=== PATIENT | male | born 1975 | race Caucasian/White ===

== ENCOUNTER → 2018-12-30 08:53 | Outpatient (CLI) | payer OTHER, MEDICAID, SELFPAY ==
--- NOTE | 2018-12-30 08:56 | DI.NM.S_ITS ---
PROCEDURE: NM GASTRIC EMPTYING STUDY RADIOPHARMACEUTICAL: 1.0 mCi Tc-99m sulfur colloid in an egg sandwich. INDICATIONS: N/v in diabetic TECHNIQUE: A Tc-99m labeled sulfur colloid labeled egg sandwich or oatmeal was served to the patient. Anterior and posterior planar images of the abdomen were obtained at 0 minutes and 30 minutes, then at hourly intervals up to 4 hours. The patient was upright and ambulating during the interval. COMPARISON: None. FINDINGS: The stomach has normal size, morphology, and position. There is normal emptying of solid gastric contents from the stomach by visual inspection. No gastroesophageal reflux is visualized. The percentage of tracer retained at specific time points are as follows: Time point Percent gastric retention Normal range 30 minutes 85% 70% or more 1 hour 56% 30% to 90% 2 hours 29% 60% or less 3 hours 4% 30% or less IMPRESSION: Normal gastric emptying time, source of current symptomatology is not found. Dictated by: Melvin Koenig M.D. on 12/30/2018 at 14:11 Approved by: Melvin Koenig M.D. on 12/30/2018 at 14:14
== END ==
PROVIDERS: PCP Student in an Organized Health Care Education/Training Program; Visit Provider Student in an Organized Health Care Education/Training Program
DX: E11.9 Type 2 diabetes mellitus without complications (principal); R11.2 Nausea with vomiting, unspecified
CPT/HCPCS: 78264; A9541

== ENCOUNTER → 2019-05-17 11:11 | Outpatient (CLI) | payer OTHER, MEDICAID, SELFPAY ==
[2019-05-17 11:52] LABS: Hematocrit 37.8 % (41-53); Hemoglobin 13.1 g/dL (13.5-17.5); Mean Corpuscular HGB Conc 34.6 % (30-36); Mean Corpuscular Volume 80.9 fL (80-100); Platelet Count 338 X10^3/uL (150-400); Red Blood Cell Count 4.67 X10^6/uL (4.5-5.9); Red Cell Distribution Width 14.3 % (11.6-14.8); White Blood Cell Count 12.4 X10^3/uL (4.5-11.0)
[2019-05-17 12:01] LABS: Hemoglobin A1C% w Est Avg Glu 7.8 % (4.0-6.0)
[2019-05-17 12:05] LABS: Cholesterol 176 mg/dL (140-199); HDL Cholesterol 28 mg/dL (40-60); LDL Cholesterol Calculated 85 mg/dL (<100); Triglycerides 317 mg/dL (35-150)
[2019-05-17 12:29] LABS: Vitamin D 25 Hydroxy (D3) 15.2 ng/mL (30.0-100.0)
== END ==
PROVIDERS: PCP Student in an Organized Health Care Education/Training Program; Visit Provider Student in an Organized Health Care Education/Training Program
DX: E11.22 Type 2 diabetes mellitus with diabetic chronic kidney disease (principal); E11.69 Type 2 diabetes mellitus with other specified complication; E13.43 Other specified diabetes mellitus with diabetic autonomic (poly)neuropathy; E78.5 Hyperlipidemia, unspecified; I12.9 Hypertensive chronic kidney disease with stage 1 through stage 4 chronic kidney disease, or unspecified chronic kidney disease; N05.9 Unspecified nephritic syndrome with unspecified morphologic changes; N18.3 Chronic kidney disease, stage 3 (moderate); Z79.4 Long term (current) use of insulin; E55.9 Vitamin D deficiency, unspecified
CPT/HCPCS: 36415; 80061; 82306; 83036; 85027

== ENCOUNTER → 2019-07-13 15:43 | Outpatient (CLI) | payer OTHER, MEDICAID, SELFPAY ==
[2019-07-13 16:46] LABS: Hematocrit 36.7 % (41-53); Hemoglobin 12.5 g/dL (13.5-17.5)
[2019-07-13 17:02] LABS: BUN Creatinine Ratio 19.5 (6-22); Blood Urea Nitrogen 39 mg/dL (9-20); Calcium 9.4 mg/dL (8.4-10.2); Carbon Dioxide 26 mmol/L (22-32); Chloride 108 mmol/L (98-107); Estimated Glomerular Filt Rate 36.6 mL/min (>60); Glucose 197 mg/dL (70-100); HEMOLYSIS < 15 (0-50); Potassium 5.2 mmol/L (3.4-5.1); Sodium 141 mmol/L (137-145)
[2019-07-13 17:32] LABS: Creatinine Urine Random 73.3 mg/dL; Protein (Total) Urine Random 110 mg/dL (0-12)
[2019-07-15 12:16] LABS: Parathyroid Hormone Int 48 pg/mL (14-64)
== END ==
PROVIDERS: PCP Student in an Organized Health Care Education/Training Program; Referring Provider Student in an Organized Health Care Education/Training Program; Visit Provider Student in an Organized Health Care Education/Training Program
DX: N05.9 Unspecified nephritic syndrome with unspecified morphologic changes (principal); D64.9 Anemia, unspecified; N25.81 Secondary hyperparathyroidism of renal origin; R80.9 Proteinuria, unspecified
CPT/HCPCS: 36415; 80048; 82570; 83970; 84156; 85014; 85018

== ENCOUNTER → 2019-08-29 14:21 | Outpatient (CLI) | payer MEDICARE, MEDICAID, SELFPAY ==
[2019-08-29 15:06] LABS: Hematocrit 32.2 % (41-53); Hemoglobin 11.3 g/dL (13.5-17.5)
[2019-08-29 15:42] LABS: BUN Creatinine Ratio 20.4 (6-22); Blood Urea Nitrogen 34 mg/dL (9-20); Calcium 9.1 mg/dL (8.4-10.2); Carbon Dioxide 25 mmol/L (22-32); Chloride 102 mmol/L (98-107); Estimated Glomerular Filt Rate 45.1 mL/min (>60); Glucose 306 mg/dL (70-100); HEMOLYSIS < 15 (0-50); Sodium 135 mmol/L (137-145)
[2019-08-29 15:43] LABS: Potassium 5.8 mmol/L (3.4-5.1)
[2019-08-29 16:34] LABS: Creatinine Urine Random 68.7 mg/dL
[2019-08-29 16:45] LABS: Protein (Total) Urine Random 303 mg/dL (0-12); Protein Creatinine Ratio Urine 4.41 GRAM/24H
[2019-08-30 06:38] LABS: Parathyroid Hormone Int 65 pg/mL (15-65)
== END ==
PROVIDERS: PCP Student in an Organized Health Care Education/Training Program; Referring Provider Student in an Organized Health Care Education/Training Program; Visit Provider Student in an Organized Health Care Education/Training Program
DX: N05.9 Unspecified nephritic syndrome with unspecified morphologic changes (principal); D64.9 Anemia, unspecified; N25.81 Secondary hyperparathyroidism of renal origin; R80.9 Proteinuria, unspecified
CPT/HCPCS: 36415; 80048; 82570; 83970; 84156; 85014; 85018

== ENCOUNTER → 2019-09-20 13:17 | Outpatient (CLI) | payer MEDICARE, MEDICAID, SELFPAY ==
[2019-09-20 14:45] LABS: HEMOLYSIS < 15 (0-50); Potassium 4.8 mmol/L (3.4-5.1)
== END ==
PROVIDERS: PCP Student in an Organized Health Care Education/Training Program; Referring Provider Student in an Organized Health Care Education/Training Program; Visit Provider Student in an Organized Health Care Education/Training Program
DX: E87.5 Hyperkalemia (principal)
CPT/HCPCS: 36415; 84132

== ENCOUNTER → 2019-11-15 15:15 | Outpatient (CLI) | payer MEDICARE, MEDICAID, SELFPAY ==
[2019-11-15 17:18] LABS: BUN Creatinine Ratio 19.5 (6-22); Blood Urea Nitrogen 43 mg/dL (9-20); Calcium 9.6 mg/dL (8.4-10.2); Carbon Dioxide 27 mmol/L (22-32); Chloride 105 mmol/L (98-107); Estimated Glomerular Filt Rate 32.5 mL/min (>60); Glucose 193 mg/dL (70-100); HEMOLYSIS < 15 (0-50); Potassium 4.9 mmol/L (3.4-5.1); Sodium 138 mmol/L (137-145)
[2019-11-15 17:23] LABS: Creatinine Urine Random 95.2 mg/dL
[2019-11-15 17:47] LABS: Protein (Total) Urine Random 297 mg/dL (0-12); Protein Creatinine Ratio Urine 3.11 GRAM/24H
== END ==
PROVIDERS: PCP Student in an Organized Health Care Education/Training Program; Referring Provider Student in an Organized Health Care Education/Training Program; Visit Provider Student in an Organized Health Care Education/Training Program
DX: R80.9 Proteinuria, unspecified (principal); N05.9 Unspecified nephritic syndrome with unspecified morphologic changes
CPT/HCPCS: 36415; 80048; 82570; 84156

== ENCOUNTER → 2019-12-06 09:35 | Outpatient (CLI) | payer MEDICARE, MEDICAID, SELFPAY ==
[2019-12-06 10:37] LABS: Add Manual Diff / Slide Review NO; Basophils Absolute Auto 100 /uL (0-100); Basophils Percent Auto 0.7 % (0-2); Eosinophils Absolute Auto 200 /uL (0-450); Hemoglobin 11.1 g/dL (13.5-17.5); Lymphocytes Absolute Auto 1900 /uL (1100-4500); Lymphocytes Percent Auto 18.1 % (25-40); Mean Corpuscular HGB Conc 34.8 % (30-36); Mean Corpuscular Hemoglobin 28.5 PG (26-34); Mean Corpuscular Volume 81.9 fL (80-100); Monocytes Absolute Auto 1000 /uL (0-900); Monocytes Percent Auto 9.5 % (3-14); Neutrophils Absolute Auto 7500 /uL (1500-7000); Neutrophils Percent Auto 69.7 % (50-75); Platelet Count 232 X10^3/uL (150-400); Red Blood Cell Count 3.91 X10^6/uL (4.5-5.9); Red Cell Distribution Width 13.8 % (11.6-14.8); White Blood Cell Count 10.8 X10^3/uL (4.5-11.0)
[2019-12-06 10:41] LABS: Hemoglobin A1C% w Est Avg Glu 9.4 % (4.0-6.0)
[2019-12-06 10:55] LABS: Alanine Aminotransferase 19 IU/L (<50); Albumin 3.4 g/dL (3.5-5.0); Albumin Globulin Ratio 1.3 (1.0-2.8); Alkaline Phosphatase 133 U/L (38-126); Aspartate Aminotransferase 20 IU/L (17-59); Bilirubin Total 0.4 mg/dL (0.2-1.3); Blood Urea Nitrogen 26 mg/dL (9-20); Calcium 8.8 mg/dL (8.4-10.2); Carbon Dioxide 26 mmol/L (22-32); Chloride 103 mmol/L (98-107); Estimated Glomerular Filt Rate 36.5 mL/min (>60); Globulin 2.6 g/dL (1.7-4.1); Glucose 272 mg/dL (70-100); HEMOLYSIS < 15 (0-50); Lipase 79 U/L (23-300); Potassium 4.1 mmol/L (3.4-5.1); Sodium 135 mmol/L (137-145)
== END ==
PROVIDERS: PCP Student in an Organized Health Care Education/Training Program; Referring Provider Student in an Organized Health Care Education/Training Program; Visit Provider Student in an Organized Health Care Education/Training Program
DX: E11.22 Type 2 diabetes mellitus with diabetic chronic kidney disease (principal); E55.9 Vitamin D deficiency, unspecified; I12.9 Hypertensive chronic kidney disease with stage 1 through stage 4 chronic kidney disease, or unspecified chronic kidney disease; N18.3 Chronic kidney disease, stage 3 (moderate); Z79.4 Long term (current) use of insulin; I16.0 Hypertensive urgency; R11.10 Vomiting, unspecified; N05.9 Unspecified nephritic syndrome with unspecified morphologic changes
CPT/HCPCS: 36415; 80053; 82306; 83036; 83690; 85025

== ENCOUNTER → 2019-12-26 12:57 | Outpatient (CLI) | payer MEDICARE, MEDICAID, SELFPAY ==
[2019-12-26 14:34] LABS: Hematocrit 35.5 % (41-53); Hemoglobin 12.3 g/dL (13.5-17.5)
[2019-12-26 15:10] LABS: Blood Urea Nitrogen 40 mg/dL (9-20); Calcium 9.1 mg/dL (8.4-10.2); Carbon Dioxide 27 mmol/L (22-32); Chloride 101 mmol/L (98-107); Estimated Glomerular Filt Rate 34.5 mL/min (>60); Glucose 271 mg/dL (70-100); HEMOLYSIS < 15 (0-50); Potassium 5.1 mmol/L (3.4-5.1); Sodium 135 mmol/L (137-145)
[2019-12-26 16:01] LABS: Creatinine Urine Random 97.4 mg/dL
[2019-12-26 16:13] LABS: Protein (Total) Urine Random 301 mg/dL (0-12); Protein Creatinine Ratio Urine 3.09 GRAM/24H
[2019-12-27 07:38] LABS: Parathyroid Hormone Int 77 pg/mL (15-65)
== END ==
PROVIDERS: PCP Student in an Organized Health Care Education/Training Program; Referring Provider Student in an Organized Health Care Education/Training Program; Visit Provider Student in an Organized Health Care Education/Training Program
DX: N05.9 Unspecified nephritic syndrome with unspecified morphologic changes (principal); D64.9 Anemia, unspecified; N25.81 Secondary hyperparathyroidism of renal origin; R80.9 Proteinuria, unspecified
CPT/HCPCS: 36415; 80048; 82570; 83970; 84156; 85014; 85018

== ENCOUNTER → 2020-03-21 15:13 | Outpatient (CLI) | payer MEDICARE, MEDICAID, SELFPAY ==
--- NOTE | 2020-03-21 15:19 | DI.RAD.S_ITS ---
PROCEDURE: XR ANKLE LT MIN 3V INDICATIONS: Ankle injury TECHNIQUE: 3 views of the ankle were acquired. COMPARISON: None. FINDINGS: Bones: No fractures or dislocations. Ankle mortise is normally aligned. No suspicious bony lesions. Soft tissues: No tibiotalar joint effusion. Achilles tendon appears normal. IMPRESSION: No trauma found. [id number] metatarsus primus varus and mild hallux valgus morphology at the 1st ray. Dictated by: Melvin Koenig M.D. on 03/21/2020 at 17:39 Approved by: Melvin Koenig M.D. on 03/21/2020 at 17:39
[2020-03-21 16:19] LABS: Hemoglobin A1C% w Est Avg Glu 9.4 % (4.0-6.0)
== END ==
PROVIDERS: PCP Student in an Organized Health Care Education/Training Program; Referring Provider Student in an Organized Health Care Education/Training Program; Visit Provider Student in an Organized Health Care Education/Training Program
DX: M79.672 Pain in left foot (principal); E11.9 Type 2 diabetes mellitus without complications; Z79.4 Long term (current) use of insulin
CPT/HCPCS: 36415; 73620; 83036

== ENCOUNTER → 2020-04-23 13:06 | Outpatient (CLI) | payer MEDICARE, MEDICAID, SELFPAY ==
[2020-04-23 13:39] LABS: Hematocrit 30.5 % (41-53); Hemoglobin 10.6 g/dL (13.5-17.5)
[2020-04-23 14:02] LABS: BUN Creatinine Ratio 17.9 (6-22); Blood Urea Nitrogen 32 mg/dL (9-20); Calcium 8.7 mg/dL (8.4-10.2); Carbon Dioxide 27 mmol/L (22-32); Chloride 105 mmol/L (98-107); Estimated Glomerular Filt Rate 41.5 mL/min (>60); Glucose 314 mg/dL (70-100); HEMOLYSIS < 15 (0-50); Potassium 4.6 mmol/L (3.4-5.1); Sodium 136 mmol/L (137-145)
[2020-04-23 16:26] LABS: Creatinine Urine Random 103.5 mg/dL
[2020-04-23 16:37] LABS: Protein (Total) Urine Random 368 mg/dL (0-12); Protein Creatinine Ratio Urine 3.55 GRAM/24H
[2020-04-24 14:10] LABS: Parathyroid Hormone Int 47 pg/mL (15-65)
== END ==
PROVIDERS: PCP Student in an Organized Health Care Education/Training Program; Referring Provider Student in an Organized Health Care Education/Training Program; Visit Provider Student in an Organized Health Care Education/Training Program
DX: N05.9 Unspecified nephritic syndrome with unspecified morphologic changes (principal); D64.9 Anemia, unspecified; N25.81 Secondary hyperparathyroidism of renal origin; R80.9 Proteinuria, unspecified
CPT/HCPCS: 36415; 80048; 82570; 83970; 84156; 85014; 85018

== ENCOUNTER → 2020-06-06 09:59 | Outpatient (CLI) | payer MEDICARE, MEDICAID, SELFPAY ==
[2020-06-06 11:06] LABS: Add Manual Diff / Slide Review NO; Basophils Absolute Auto 100 /uL (0-100); Basophils Percent Auto 0.6 % (0-2); Eosinophils Absolute Auto 100 /uL (0-450); Eosinophils Percent Auto 1.2 % (2-4); Hematocrit 34.5 % (41-53); Hemoglobin 11.5 g/dL (13.5-17.5); Lymphocytes Absolute Auto 1700 /uL (1100-4500); Lymphocytes Percent Auto 17.9 % (25-40); Mean Corpuscular HGB Conc 33.4 % (30-36); Mean Corpuscular Hemoglobin 27.2 PG (26-34); Mean Corpuscular Volume 81.6 fL (80-100); Monocytes Absolute Auto 800 /uL (0-900); Monocytes Percent Auto 7.8 % (3-14); Neutrophils Absolute Auto 7000 /uL (1500-7000); Neutrophils Percent Auto 72.5 % (50-75); Platelet Count 212 X10^3/uL (150-400); Red Blood Cell Count 4.23 X10^6/uL (4.5-5.9); Red Cell Distribution Width 14.9 % (11.6-14.8); White Blood Cell Count 9.7 X10^3/uL (4.5-11.0)
[2020-06-06 11:20] LABS: Hemoglobin A1C% w Est Avg Glu 9.2 % (4.0-6.0)
[2020-06-06 11:22] LABS: Alanine Aminotransferase 18 IU/L (<50); Albumin 3.6 g/dL (3.5-5.0); Albumin Globulin Ratio 1.2 (1.0-2.8); Alkaline Phosphatase 117 U/L (38-126); Aspartate Aminotransferase 17 IU/L (17-59); BUN Creatinine Ratio 15.9 (6-22); Bilirubin Total 0.2 mg/dL (0.2-1.3); Blood Urea Nitrogen 31 mg/dL (9-20); Calcium 8.7 mg/dL (8.4-10.2); Carbon Dioxide 29 mmol/L (22-32); Chloride 102 mmol/L (98-107); Estimated Glomerular Filt Rate 37.6 mL/min (>60); Globulin 3.1 g/dL (1.7-4.1); Glucose 266 mg/dL (70-100); HEMOLYSIS < 15 (0-50); Potassium 4.2 mmol/L (3.4-5.1); Sodium 136 mmol/L (137-145); Total Protein 6.7 g/dL (6.3-8.2)
[2020-06-06 11:39] LABS: Vitamin D 25 Hydroxy (D3) < 12.8 ng/mL (30.0-100.0)
[2020-06-06 11:41] LABS: Free T3, Triiodothyronine Free 4.19 pg/mL (2.77-5.27); Free T4, Direct Thyroxine 0.92 ng/dL (0.78-2.19)
[2020-06-06 11:55] LABS: Thyroid Stimulating Hormone 4.71 uIU/mL (0.47-4.68)
[2020-06-09 22:36] LABS: Metanephrine,Plasma 13.6 pg/mL (0.0-88.0)
[2020-06-20 04:12] LABS: Renin Activity 1.098 ng/mL/hr (0.167-5.380)
== END ==
PROVIDERS: PCP Student in an Organized Health Care Education/Training Program; Referring Provider Student in an Organized Health Care Education/Training Program; Visit Provider Student in an Organized Health Care Education/Training Program
DX: I16.1 Hypertensive emergency (principal); E11.9 Type 2 diabetes mellitus without complications; E55.9 Vitamin D deficiency, unspecified; R09.89 Other specified symptoms and signs involving the circulatory and respiratory systems; Z79.4 Long term (current) use of insulin
CPT/HCPCS: 36415; 80053; 82088; 82306; 83036; 83835; 84244; 84439; 84443; 84481; 85025

== ENCOUNTER → 2020-06-11 14:21 | Outpatient (CLI) | payer MEDICARE, MEDICAID, SELFPAY ==
[2020-06-19 01:48] LABS: 5-HIAA, UR 24HR 0.8 mg/24 hr (0.0-14.9); 5-HIAA, Urine 2.7 mg/L (Undefined); Creatinine Urine 75.9 mg/dL (Not Estab.)
[2020-06-21 14:13] LABS: Urine, Normetanephrine 61.4
== END ==
PROVIDERS: PCP Student in an Organized Health Care Education/Training Program; Referring Provider Student in an Organized Health Care Education/Training Program; Visit Provider Student in an Organized Health Care Education/Training Program
DX: I16.1 Hypertensive emergency (principal); R09.89 Other specified symptoms and signs involving the circulatory and respiratory systems
CPT/HCPCS: 82570; 83497; 83835

== ENCOUNTER → 2020-09-07 09:45 | Outpatient (CLI) | payer MEDICARE, MEDICAID, SELFPAY ==
[2020-09-07 11:04] LABS: COVID19 -Nasal RAPID Negative (Negative)
== END ==
PROVIDERS: PCP Student in an Organized Health Care Education/Training Program; Visit Provider Family Medicine Sleep Medicine
DX: Z20.822 Contact with and (suspected) exposure to COVID-19 (principal)
CPT/HCPCS: 87635; C9803

== ENCOUNTER → 2021-01-08 10:13 | Outpatient (CLI) | payer MEDICARE, MEDICAID, SELFPAY ==
[2021-01-08 10:38] LABS: Add Manual Diff / Slide Review NO; Basophils Absolute Auto 100 /uL (0-100); Basophils Percent Auto 0.9 % (0-2); Eosinophils Absolute Auto 200 /uL (0-450); Eosinophils Percent Auto 1.6 % (2-4); Hematocrit 35.6 % (41-53); Hemoglobin 12.4 g/dL (13.5-17.5); Lymphocytes Absolute Auto 1600 /uL (1100-4500); Mean Corpuscular HGB Conc 34.8 % (30-36); Mean Corpuscular Hemoglobin 28.8 PG (26-34); Monocytes Absolute Auto 900 /uL (0-900); Monocytes Percent Auto 8.2 % (3-14); Neutrophils Absolute Auto 7900 /uL (1500-7000); Neutrophils Percent Auto 74.3 % (50-75); Platelet Count 234 X10^3/uL (150-400); Red Blood Cell Count 4.29 X10^6/uL (4.5-5.9); Red Cell Distribution Width 13.9 % (11.6-14.8); White Blood Cell Count 10.6 X10^3/uL (4.5-11.0)
[2021-01-08 10:47] LABS: Hemoglobin A1C% w Est Avg Glu 8.1 % (4.0-6.0)
[2021-01-08 10:53] LABS: Alanine Aminotransferase 19 IU/L (<50); Albumin 3.6 g/dL (3.5-5.0); Albumin Globulin Ratio 1.2 (1.0-2.8); Alkaline Phosphatase 127 U/L (38-126); Aspartate Aminotransferase 19 IU/L (17-59); BUN Creatinine Ratio 10.3 (6-22); Bilirubin Total 0.3 mg/dL (0.2-1.3); Blood Urea Nitrogen 24 mg/dL (9-20); Calcium 8.8 mg/dL (8.4-10.2); Carbon Dioxide 30 mmol/L (22-32); Chloride 102 mmol/L (98-107); Erythrocyte Sedimentation Rate 45 MM/HR (0-15); Estimated Glomerular Filt Rate 30.3 mL/min (>60); Globulin 3.1 g/dL (1.7-4.1); Glucose 266 mg/dL (70-100); HEMOLYSIS < 15 (0-50); Potassium 4.3 mmol/L (3.4-5.1); Sodium 137 mmol/L (137-145); Total Protein 6.7 g/dL (6.3-8.2)
[2021-01-08 11:11] LABS: Vitamin D 25 Hydroxy (D3) 13.6 ng/mL (30.0-100.0)
[2021-01-08 11:26] LABS: TSH w/ Reflex to FT4 1.48 uIU/mL (0.47-4.68)
[2021-01-09 12:11] LABS: Parathyroid Hormone Int 68 pg/mL (15-65)
[2021-01-09 17:52] LABS: Tissue Transglutaminase IgA <2 U/mL (0-3); Tissue Transglutaminase IgG 3 U/mL (0-5)
== END ==
PROVIDERS: PCP Student in an Organized Health Care Education/Training Program; Referring Provider Student in an Organized Health Care Education/Training Program; Visit Provider Student in an Organized Health Care Education/Training Program
DX: R19.7 Diarrhea, unspecified (principal); E11.22 Type 2 diabetes mellitus with diabetic chronic kidney disease; E55.9 Vitamin D deficiency, unspecified; F33.9 Major depressive disorder, recurrent, unspecified; N05.9 Unspecified nephritic syndrome with unspecified morphologic changes; E11.9 Type 2 diabetes mellitus without complications; Z79.4 Long term (current) use of insulin; I12.9 Hypertensive chronic kidney disease with stage 1 through stage 4 chronic kidney disease, or unspecified chronic kidney disease; N18.30 Chronic kidney disease, stage 3 unspecified
CPT/HCPCS: 36415; 80053; 82306; 83036; 83516; 83970; 84443; 85025; 85651

== ENCOUNTER 2021-05-15 10:55 | Emergency (ER) | payer MEDICARE, MEDICAID, SELFPAY ==
[2021-05-15 11:43] VITALS: BP 170/84; PULSE 80; RESP 18; TEMP 36.2; O2SAT 97; BMI 34.8
--- NOTE | 2021-05-15 11:50 | DI.RAD.S_ITS ---
PROCEDURE: XR FOOT LT MIN 3V INDICATIONS: Trauma, pain TECHNIQUE: 3 views of the foot were acquired. COMPARISON: None. FINDINGS: Bones: No fractures or dislocations. No suspicious bony lesions. Soft tissues: No tibiotalar joint effusion. Achilles tendon appears normal. Dorsal soft tissue swelling IMPRESSION: Soft tissue swelling without fracture or foreign body Approved by: Chay Munguia M.D. on 05/15/2021 at 12:25
--- NOTE | 2021-05-15 13:44 | DI.RAD.S_ITS ---
PROCEDURE: XR ANKLE LT MIN 3V INDICATIONS: pain, swelling lateral foot and ankle TECHNIQUE: 3 views of the ankle were acquired. COMPARISON: [facility], CR, XR FOOT LT MIN 3V, 05/15/2021, 11:53. [facility], CR, XR ANKLE LT MIN 3V, 03/21/2020, 15:37. FINDINGS: Bones: There is a slight nondisplaced lucency at the distal fibular tip. Ankle mortise is normally aligned. No suspicious bony lesions. Soft tissues: Mild lateral malleolar edema.. Achilles tendon appears normal. IMPRESSION: Slight nondisplaced lucency at the distal fibular tip. Fracture cannot be excluded and recommend correlation to point tenderness. Short interval imaging follow-up in 7-10 days is recommended. Dictated by: Lena Huntley M.D. on 05/15/2021 at 14:21 Approved by: Lena Huntley M.D. on 05/15/2021 at 14:23
[2021-05-15 13:55] VITALS: PULSE 76
--- NOTE | 2021-05-15 13:59 | PC.NURSE ---
Patient was getting out of bed yesterday morning when he fell and heard a pop to his left ankle. He is unable to bear weight. CMS intact, with post tib pulse noted. 7/10 pain that is tight and heavy, with swelling noted. BS is 296.
--- NOTE | 2021-05-15 14:12 | ED.LOWEXIN ---
HPI - Extremity Injury (Lower) General Chief Complaint: Extremity Injury, Lower Stated Complaint: LT FOOT SWOLLEN/PAINFUL Time Seen by Provider: 05/15/21 12:33 Source: patient Mode of arrival: Wheelchair History of Present Illness HPI Narrative: 45-year-old male former smoker with history of diabetes and hyperlipidemia presents with a chief complaint of an injury to his left ankle suffered when he stepped on it awkwardly yesterday. He states he was walking and then heard and felt a snap and then developed increasing pain and swelling in his lateral foot. He states it hurts worse to walk and is improved with rest. He denies any numbness, tingling or weakness. He has had no fever or chills. He denies any knee or hip pain Related Data Home Medications Medication Instructions Recorded Confirmed clonidine HCl 0.1 mg tablet 0.1 mg PO BEDTIME 12/11/20 01/08/21 Previous Rx's Medication Instructions Recorded Insulin lispro sliding scale #1 ea 05/23/19 insulin glargine 100 unit/mL (3 45 unit (0.45 mL) SUB-Q QDAY #15 ml 05/16/20 mL) subcutaneous pen (Lantus Solostar U-100 Insulin) atorvastatin 20 mg tablet 20 mg PO DAILY #90 tab 05/23/20 sildenafil (pulm.hypertension) 20 20 mg PO DAILY PRN #30 tab 07/17/20 mg tablet famotidine 20 mg tablet 20 mg PO DAILY #90 tab 09/10/20 flash glucose scanning reader #1 ea 09/18/20 (FreeStyle Fabiana 14 Day [place]) flash glucose sensor (FreeStyle #2 ea 11/16/20 Fabiana 14 Day Sensor) calcitriol 0.25 mcg capsule 0.25 mcg PO DAILY #90 cap 01/11/21 insulin lispro 100 unit/mL See Rx Instructions SUBCUT QAC #30 01/16/21 subcutaneous pen ml lisinopril 40 mg tablet 40 mg PO DAILY #90 tab 01/16/21 carvedilol 25 mg tablet 25 mg PO BID #180 tab 01/28/21 venlafaxine 150 mg 150 mg PO DAILY #90 cap 01/28/21 capsule,extended release 24 hr furosemide 40 mg tablet (Lasix) 40 mg PO DAILY #90 tab 01/30/21 ondansetron 4 mg disintegrating 4 mg PO Q8H PRN #21 tab 03/12/21 tablet LACETS #1 ea 03/14/21 True Metrix Blood Glucose Test #100 each 03/14/21 Strips metoclopramide HCl 10 mg tablet 10 mg PO QAC PRN #90 tab 03/14/21 pen needle, diabetic 32 gauge x #50 ea 03/14/21 (ReliOn Pen Wright[place]) alprazolam 0.5 mg tablet 0.5 mg PO BEDTIME PRN #30 tab 03/15/21 pregabalin 50 mg capsule 50 mg PO TID #90 cap 04/08/21 hydrocodone 5 mg-acetaminophen 325 1 tab PO Q4-6H PRN #10 tab 05/15/21 mg tablet Allergies Allergy/AdvReac Type Severity Reaction Status Date / Time Penicillins [PENICILLINS] Allergy Intermediate rash Verified 01/08/21 09:28 hydralazine Allergy Mild UPPER BODY Verified 01/08/21 09:28 SWELLING latex Allergy Rash Verified 01/08/21 09:28 Review of Systems Review of Systems Narrative: GENERAL: Denies chills, fatigue, malaise, fever, sweats. HEENT: Denies sinus pain, ear pain, sore throat, difficulty swallowing, dizziness. RESPIRATORY: Denies dyspnea, cough, wheezing, hemoptysis, sputum. CARDIOVASCULAR: Denies chest pain, palpitations, orthopnea, edema, GASTROINTESTINAL: Denies nausea, vomiting, abdominal pain, diarrhea, constipation, melena. : Denies dysuria, frequency, incontinence, hematuria, urinary retention. MUSCULOSKELETAL: d see HP SKIN: Denies rash, skin lesions, or other NEUROLOGIC: Denies weakness, headache, numbness, change in speech, confusion, seizures, incoordination. PSYCHIATRIC: No concerning psychosocial issues. 12 point review of systems is negative except for those stated above Patient History Medical History Anemia Diabetes Fatigue due to sleep pattern disturbance GERD (gastroesophageal reflux disease) HTN (hypertension) Human bite of right hand Insomnia due to medical condition (~09/10/20) Neuropathy Nocturnal hypoxemia (~09/10/20) Obesity (BMI 30-39.9) Obstructive sleep apnea, adult (09/10/20) Right hand fracture Snoring Tobacco use disorder, continuous Vision disorder Surgical History Anesthesia Right hand fracture Family History Mother Diabetes mellitus Alcohol abuse Substance abuse Autism Hypertension Hyperlipidemia Stroke Loud snoring Sleep apnea Restless leg Depression Anxiety Family/Other Loud snoring Sleep apnea Hypertension Diabetes mellitus Heart disease Dementia Alcohol abuse Family/Other Loud snoring Sleep apnea Obesity Anxiety Depression ADD (attention deficit disorder) Alcohol abuse Substance abuse Social History Smoking Status: Former smoker Smoking Status: Former smoker tobacco type: smokeless tobacco alcohol intake frequency: other Substance Use Type: marijuana Exam Narrative Exam Narrative: GEN: AOx3 and in mild distress EYES: Pupils are equal, round, and reactive to light and accommodation. Extraoccular muscles are intact bilaterally. There is no subconjunctival hemorrhage or exudate. CHEST: Lungs are clear to auscultation bilaterally and free of wheezes, rales, or rhonchi. Heart rate is regular rhythm, there are no murmurs, clicks, rubs, or gallops. There is no chest wall tenderness. ABD: Abdomen is soft and nontender. There is no guarding or rebound. Bowel sounds are normal in all 4 quadrants. There is no mass or organomegaly. EXT: Full range of motion at left hip, knee and ankle. There is tenderness to palpation over the lateral malleolus and lateral aspect of the foot with minimal erythema. Sensation is intact, this was closed, isolated. SKIN: Warm, pink, and dry. No erythema or rash Initial Vital Signs Initial Vital Signs: Vital Signs Temperature 97.2 F L 05/15/21 11:43 Pulse Rate 80 05/15/21 11:43 Respiratory Rate 18 05/15/21 11:43 Blood Pressure 170/84 H 05/15/21 11:43 Pulse Oximetry 97 05/15/21 11:43 Course Orders Ordered: ED Orders 05/15/21 11:50 XR foot LT min 3V Stat 05/15/21 13:44 XR ankle LT min 3V Stat Vital Signs Vital signs: Vital Signs - 8 hr 05/15/21 11:43 05/15/21 13:55 Temperature 97.2 F L Pulse Rate 80 Pulse Rate [Left Posterior Tibial] 76 Respiratory Rate 18 Blood Pressure 170/84 H Pulse Oximetry 97 MDM - Extremity Injury (Lower) Lab Data Labs: Point of Care Testing Glucose POC 296 Imaging Data Extremity x-ray #1: Radiologist's Impression: Flo Shi??45??M??1975 ? Allergy/Adv: Penicillins, hydralazine, latex (More??) Close Ankle X-Ray (Signed) Lena Huntley - 05/15/21 Foot X-Ray (Signed) Chay Munguia - 05/15/21 Foot X-Ray (Signed) Melvin Koenig - 03/21/20 Gastric Emptying Nuclear Medicine (Signed) Melvin Koenig - 12/30/18 Hand X-Ray (Signed) Gil Jacob - 09/15/17 Radiology - Historical 09/05/17 Radiology - Historical 01/18/16 Launch?Image [address] [address] XRay Report Signed Patient: Flo Shi MR#: [id number] : 1975 Acct:[id number] Age/Sex: 45 / M Date of Service: 05/15/21 Loc: ED Accession Number: [id number] ?? Procedure: XR foot LT min 3V Ordering Provider: Kishore Lozoya D.O. PROCEDURE:? XR FOOT LT MIN 3V ? INDICATIONS:? Trauma, pain ? TECHNIQUE:? 3 views of the foot were acquired.? ? COMPARISON:? None. ? FINDINGS:? ? Bones:? No fractures or dislocations.? No suspicious bony lesions.? ? Soft tissues:? No tibiotalar joint effusion.? Achilles tendon appears normal.? Dorsal soft tissue swelling ? ? IMPRESSION:? Soft tissue swelling without fracture or foreign body ? ? ? Approved by: Chay Munguia M.D. on 05/15/2021 at 12:25? Extremity x-ray #2: Radiologist's Impression: [address] [address] XRay Report Signed Patient: Flo Shi MR#: [id number] : 1975 Acct:[id number] Age/Sex: 45 / M Date of Service: 05/15/21 Loc: ED Accession Number: [id number] ?? Procedure: XR ankle LT min 3V Ordering Provider: Kishore Lozoya D.O. PROCEDURE:? XR ANKLE LT MIN 3V ? INDICATIONS:? pain, swelling lateral foot and ankle ? TECHNIQUE:? 3 views of the ankle were acquired.? ? COMPARISON:? [facility], CR, XR FOOT LT MIN 3V, 05/15/2021, 11:53.? [facility], CR, XR ANKLE LT MIN 3V, 03/21/2020, 15:37. ? FINDINGS:? ? Bones:? There is a slight nondisplaced lucency at the distal fibular tip.? Ankle mortise is normally aligned.? No suspicious bony lesions.? ? Soft tissues:? Mild lateral malleolar edema..? Achilles tendon appears normal.? ? ? IMPRESSION:? Slight nondisplaced lucency at the distal fibular tip.? Fracture cannot be excluded and recommend correlation to point tenderness.? Short interval imaging follow-up in 7-10 days is recommended. ? Dictated by: Lena Huntley M.D. on 05/15/2021 at 14:21 ? ? Approved by: Lena Huntley M.D. on 05/15/2021 at 14:23 ? Discharge Plan Departure Patient Disposition: Home Clinical Impression: Avulsion fracture of distal end of fibula Instructions: Ankle Fracture, DI for Ankle Pain Activity Restrictions/Additional Instructions: *You have been diagnosed with [ankle sprain and possible mild avulsion fracture of distal fibula *What to do: *Please continue to take your regular medications as directed. [ x] New medication prescriptions sent to your pharmacy: [[facility]] [ ] New medication written as a paper prescription [x] Tylenol and occasional Motrin for pain *Please follow up with Dr. Chloe Grace] of [facility] in 2-3 days, call for an appointment. Let them know you were seen in the Emergency Department and that we ask that you be seen in follow up. We will electronically transmit a record of today's note if your PCP is in our system *Return to Emergency Department if you should have any new, worsening or concerning symptoms, such as [worsening pain, significant swelling, cold extremities, numbness, tingling, weakness or other bothersome symptoms Splint Care: Keep splint clean and dry. Elevated affected body part to decrease swelling. OK to use ice pack on the affected body part. Use for 15-20 minutes each time, for 5-6x per day. If you develop worsening pain, numbness, tingling, discoloration of the affected body part, loosen the splint by loosening the NIEVES wrap, and either see your doctor for an urgent re-assessment, or return to the Emergency Department. Return to the Emergency Department for any new or worsening symptoms. You have been prescribed a short course of narcotic medications. These are potentially dangerous and addictive medications that should be used carefully. While on these medications you cannot drive or operate heavy machinery. Additionally, you cannot sign legal documents or perform any duties such as this. 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 Please understand that we cannot provide further refills of narcotics or controlled substances through the ED and your pain management will need to be through your Primary Care Provider Prescriptions: New hydrocodone-acetaminophen 5-325 mg tablet 1 tab PO Q4-6H PRN (Reason: pain) Qty: 10 0RF No Action Lantus Solostar U-100 Insulin 100 unit/mL (3 mL) insulin pen 45 unit Sub-Q QDAY Qty: 15 11RF atorvastatin 20 mg tablet 20 mg PO DAILY Qty: 90 3RF sildenafil (pulm.hypertension) 20 mg tablet 20 mg PO DAILY PRN (Reason: sexual activity) Qty: 30 11RF Rx Instructions: 1-5 tabs 30 minutes prior to sexual activity famotidine 20 mg tablet 20 mg PO DAILY Qty: 90 3RF (DME) FreeStyle Fabiana 14 Day [place] Misc See Rx Instructions .ROUTE .MEDSUPPLY Qty: 1 0RF Rx Instructions: As directed (DME) FreeStyle Fabiana 14 Day Sensor Kit See Rx Instructions .ROUTE .MEDSUPPLY Qty: 2 6RF Rx Instructions: As directed insulin lispro 100 unit/mL insulin pen See Rx Instructions SUBCUT QAC Qty: 30 5RF Rx Instructions: 10 units before meals in addition to sliding scale dose; 10-24 units lisinopril 40 mg tablet 40 mg PO DAILY Qty: 90 3RF venlafaxine 150 mg capsule,extended release 24hr 150 mg PO DAILY Qty: 90 1RF carvedilol 25 mg tablet 25 mg PO BID Qty: 180 3RF Rx Instructions: must administer with a meal/food furosemide [Lasix] 40 mg tablet 40 mg PO DAILY Qty: 90 3RF ondansetron 4 mg tablet,disintegrating 4 mg PO Q8H PRN (Reason: nausea and vomiting) Qty: 21 0RF (DME) True Metrix Blood Glucose Test Strips Qty: 100 3RF Rx Instructions: Use to check blood sugars once daily (DME) pen needle, diabetic [ReliOn Pen [place]] 32 gauge x 5/32 needle See Rx Instructions .ROUTE .MEDSUPPLY Qty: 50 3RF Rx Instructions: use to inject insulin once a day (DME) LACETS Qty: 1 3RF Rx Instructions: As directed CHECK BLOOD SUGAR ONCE A DAY metoclopramide HCl 10 mg tablet 10 mg PO QAC PRN (Reason: nausea and vomiting) Qty: 90 5RF Rx Instructions: administer 30 minutes before meals alprazolam 0.5 mg tablet 0.5 mg PO BEDTIME PRN (Reason: sleep) Qty: 30 3RF pregabalin 50 mg capsule 50 mg PO TID Qty: 90 2RF (DME) Insulin lispro sliding scale Qty: 1 0RF Rx Instructions: 2 units for every 50mg/dL glucose over 100 calcitriol 0.25 mcg capsule 0.25 mcg PO DAILY Qty: 90 1RF clonidine HCl 0.1 mg tablet 0.1 mg PO BEDTIME 0RF Referrals: Roldan Hernandez MD [Primary Care Provider] - Margaret Grace MD [Physician] -
[2021-05-15 15:38] VITALS: BP 173/81; PULSE 77; O2SAT 100
== END 2021-05-15 15:41 | disposition home or self-care (01) ==
PROVIDERS: Emergency Provider Emergency Medicine; PCP Student in an Organized Health Care Education/Training Program
DX: S82.832A Other fracture of upper and lower end of left fibula, initial encounter for closed fracture (principal); E11.9 Type 2 diabetes mellitus without complications; X50.1XXA Overexertion from prolonged static or awkward postures, initial encounter; Y93.01 Activity, walking, marching and hiking
CPT/HCPCS: 29515; 73610; 73630; 82962; 99283

== ENCOUNTER → 2021-08-05 14:01 | Outpatient (CLI) | payer MEDICARE, MEDICAID, SELFPAY ==
[2021-08-05 14:56] LABS: Reticulocyte Count, Percent 1.4 % (0.9-2.6)
[2021-08-05 14:58] LABS: Add Manual Diff / Slide Review NO; Basophils Absolute Auto 100 /uL (0-100); Basophils Percent Auto 0.6 % (0-2); Eosinophils Absolute Auto 100 /uL (0-450); Eosinophils Percent Auto 1.1 % (2-4); Hemoglobin 11.1 g/dL (13.5-17.5); Lymphocytes Absolute Auto 1900 /uL (1100-4500); Lymphocytes Percent Auto 14.3 % (25-40); Mean Corpuscular HGB Conc 33.8 % (30-36); Mean Corpuscular Volume 82.8 fL (80-100); Monocytes Absolute Auto 700 /uL (0-900); Monocytes Percent Auto 5.5 % (3-14); Neutrophils Absolute Auto 10200 /uL (1500-7000); Neutrophils Percent Auto 78.5 % (50-75); Platelet Count 246 X10^3/uL (150-400); Red Blood Cell Count 3.98 X10^6/uL (4.5-5.9); Red Cell Distribution Width 14.7 % (11.6-14.8)
[2021-08-05 15:12] LABS: Alanine Aminotransferase 19 IU/L (<50); Albumin 3.5 g/dL (3.5-5.0); Albumin Globulin Ratio 1.2 (1.0-2.8); Alkaline Phosphatase 104 U/L (38-126); Aspartate Aminotransferase 22 IU/L (17-59); Bilirubin Total 0.2 mg/dL (0.2-1.3); Blood Urea Nitrogen 27 mg/dL (9-20); Calcium 8.6 mg/dL (8.4-10.2); Carbon Dioxide 27 mmol/L (22-32); Chloride 105 mmol/L (98-107); Estimated Glomerular Filt Rate 28.6 mL/min (>60); Glucose 176 mg/dL (70-100); HEMOLYSIS < 15 (0-50); Lipase 35 U/L (23-300); Potassium 4.8 mmol/L (3.4-5.1); Sodium 136 mmol/L (137-145); Total Protein 6.5 g/dL (6.3-8.2)
[2021-08-05 15:14] LABS: HEMOLYSIS < 15 (0-50); Iron 36 ug/dL (49-181)
[2021-08-05 15:25] LABS: Percent Iron Saturation 12 % (20-50); Total Iron Binding Capacity 289 ug/dL (261-462); Transferrin 247 mg/dL (206-381)
[2021-08-05 15:34] LABS: Ferritin 22 ng/mL (18-464)
[2021-08-05 15:35] LABS: Hemoglobin A1C% w Est Avg Glu 8.7 % (4.0-6.0)
[2021-08-05 16:06] LABS: Folate 5.8 ng/mL (2.76-20.0); Vitamin B12 488 pg/mL (239-931)
[2021-08-05 16:13] LABS: Vitamin D 25 Hydroxy (D3) < 12.8 ng/mL (30.0-100.0)
[2021-08-06 08:09] LABS: Parathyroid Hormone Int 135 pg/mL (15-65)
== END ==
PROVIDERS: PCP Student in an Organized Health Care Education/Training Program; Referring Provider Student in an Organized Health Care Education/Training Program; Visit Provider Student in an Organized Health Care Education/Training Program
DX: K92.2 Gastrointestinal hemorrhage, unspecified (principal); E11.22 Type 2 diabetes mellitus with diabetic chronic kidney disease; E11.9 Type 2 diabetes mellitus without complications; E55.9 Vitamin D deficiency, unspecified; I12.9 Hypertensive chronic kidney disease with stage 1 through stage 4 chronic kidney disease, or unspecified chronic kidney disease; Z79.4 Long term (current) use of insulin; R10.9 Unspecified abdominal pain; N18.30 Chronic kidney disease, stage 3 unspecified
CPT/HCPCS: 36415; 80053; 82306; 82607; 82728; 82746; 83036; 83540; 83550; 83690; 83970; 85025; 85045; 86850; 86900; 86901

== ENCOUNTER → 2021-10-01 11:54 | Outpatient (CLI) | payer MEDICARE, MEDICAID, SELFPAY ==
[2021-10-01 13:44] LABS: Hematocrit 35.8 % (41-53); Hemoglobin 12.1 g/dL (13.5-17.5)
[2021-10-01 13:52] LABS: BUN Creatinine Ratio 8.9 (6-22); Blood Urea Nitrogen 23 mg/dL (9-20); Calcium 8.6 mg/dL (8.4-10.2); Carbon Dioxide 29 mmol/L (22-32); Chloride 102 mmol/L (98-107); Estimated Glomerular Filt Rate 30 mL/min (>60); Glucose 233 mg/dL (70-100); HEMOLYSIS < 15 (0-50); Potassium 4.4 mmol/L (3.4-5.1); Sodium 139 mmol/L (137-145)
[2021-10-01 14:53] LABS: Creatinine Urine Random 130.2 mg/dL
[2021-10-01 15:09] LABS: Protein (Total) Urine Random 1553 mg/dL (0-12); Protein Creatinine Ratio Urine 11.92 GRAM/24H
[2021-10-02 05:43] LABS: Parathyroid Hormone Int 82 pg/mL (15-65)
== END ==
PROVIDERS: PCP Student in an Organized Health Care Education/Training Program; Referring Provider Student in an Organized Health Care Education/Training Program; Visit Provider Student in an Organized Health Care Education/Training Program
DX: N05.9 Unspecified nephritic syndrome with unspecified morphologic changes (principal); D64.9 Anemia, unspecified; N25.81 Secondary hyperparathyroidism of renal origin; R80.9 Proteinuria, unspecified
CPT/HCPCS: 36415; 80048; 82570; 83970; 84156; 85014; 85018

== ENCOUNTER → 2021-10-29 14:51 | Outpatient (CLI) | payer MEDICARE, MEDICAID, SELFPAY ==
[2021-10-29 15:36] LABS: BUN Creatinine Ratio 10.8 (6-22); Blood Urea Nitrogen 24 mg/dL (9-20); Estimated Glomerular Filt Rate 36 mL/min (>60)
[2021-10-29 15:38] LABS: Hemoglobin A1C% w Est Avg Glu 9.5 % (4.0-6.0)
== END ==
PROVIDERS: PCP Student in an Organized Health Care Education/Training Program; Referring Provider Student in an Organized Health Care Education/Training Program; Visit Provider Student in an Organized Health Care Education/Training Program
DX: E11.9 Type 2 diabetes mellitus without complications (principal); N05.9 Unspecified nephritic syndrome with unspecified morphologic changes; R09.89 Other specified symptoms and signs involving the circulatory and respiratory systems; Z79.4 Long term (current) use of insulin
CPT/HCPCS: 36415; 82565; 83036; 84520

== ENCOUNTER → 2021-11-20 14:13 | Outpatient (CLI) | payer MEDICARE, MEDICAID, SELFPAY ==
[2021-11-20 14:48] LABS: Hematocrit 34.3 % (41-53); Hemoglobin 11.9 g/dL (13.5-17.5)
[2021-11-20 15:08] LABS: BUN Creatinine Ratio 11.4 (6-22); Blood Urea Nitrogen 33 mg/dL (9-20); Estimated Glomerular Filt Rate 26 mL/min (>60)
[2021-11-20 15:09] LABS: BUN Creatinine Ratio 11.1 (6-22); Blood Urea Nitrogen 32 mg/dL (9-20); Calcium 8.6 mg/dL (8.4-10.2); Carbon Dioxide 31 mmol/L (22-32); Chloride 100 mmol/L (98-107); Estimated Glomerular Filt Rate 27 mL/min (>60); Glucose 223 mg/dL (70-100); HEMOLYSIS < 15 (0-50); Potassium 4.9 mmol/L (3.4-5.1); Sodium 137 mmol/L (137-145)
[2021-11-20 15:18] LABS: Creatinine Urine Random 92.5 mg/dL
[2021-11-20 15:39] LABS: Protein (Total) Urine Random 899 mg/dL (0-12); Protein Creatinine Ratio Urine 9.71 GRAM/24H
[2021-11-21 06:12] LABS: Hemoglobin A1C% w Est Avg Glu 9.6 % (4.0-6.0)
[2021-11-21 06:34] LABS: Parathyroid Hormone Int 93 pg/mL (15-65)
== END ==
PROVIDERS: PCP Student in an Organized Health Care Education/Training Program; Referring Provider Student in an Organized Health Care Education/Training Program; Visit Provider Student in an Organized Health Care Education/Training Program
DX: E11.9 Type 2 diabetes mellitus without complications (principal); N05.9 Unspecified nephritic syndrome with unspecified morphologic changes; D64.9 Anemia, unspecified; N25.81 Secondary hyperparathyroidism of renal origin; R80.9 Proteinuria, unspecified; Z79.4 Long term (current) use of insulin
CPT/HCPCS: 36415; 80048; 82565; 82570; 83036; 83970; 84156; 84520; 85014; 85018

== ENCOUNTER → 2022-01-28 16:28 | Outpatient (CLI) | payer MEDICARE, MEDICAID, SELFPAY ==
[2022-01-28 17:46] LABS: Hematocrit 33.6 % (41-53); Hemoglobin 11.6 g/dL (13.5-17.5)
[2022-01-28 18:00] LABS: BUN Creatinine Ratio 11.9 (6-22); Blood Urea Nitrogen 39 mg/dL (9-20); Calcium 8.4 mg/dL (8.4-10.2); Carbon Dioxide 25 mmol/L (22-32); Chloride 105 mmol/L (98-107); Estimated Glomerular Filt Rate 23 mL/min (>60); Glucose 232 mg/dL (70-100); HEMOLYSIS < 15 (0-50); Potassium 5.2 mmol/L (3.4-5.1); Sodium 137 mmol/L (137-145)
[2022-01-28 19:47] LABS: Creatinine Urine Random 100.2 mg/dL
[2022-01-28 20:07] LABS: Protein (Total) Urine Random 672 mg/dL (0-12)
[2022-01-29 08:13] LABS: Parathyroid Hormone Int 96 pg/mL (15-65)
== END ==
PROVIDERS: PCP Student in an Organized Health Care Education/Training Program; Referring Provider Student in an Organized Health Care Education/Training Program; Visit Provider Student in an Organized Health Care Education/Training Program
DX: N05.9 Unspecified nephritic syndrome with unspecified morphologic changes (principal); D64.9 Anemia, unspecified; R80.9 Proteinuria, unspecified; N25.81 Secondary hyperparathyroidism of renal origin
CPT/HCPCS: 36415; 80048; 82570; 83970; 84156; 85014; 85018

== ENCOUNTER → 2022-02-05 12:28 | Outpatient (CLI) | payer MEDICARE, MEDICAID, SELFPAY ==
[2022-02-05 15:04] LABS: BUN Creatinine Ratio 12.1 (6-22); Blood Urea Nitrogen 35 mg/dL (9-20); Calcium 8.7 mg/dL (8.4-10.2); Carbon Dioxide 25 mmol/L (22-32); Chloride 102 mmol/L (98-107); Estimated Glomerular Filt Rate 26 mL/min (>60); Glucose 150 mg/dL (70-100); HEMOLYSIS < 15 (0-50); Potassium 4.9 mmol/L (3.4-5.1); Sodium 138 mmol/L (137-145)
== END ==
PROVIDERS: PCP Student in an Organized Health Care Education/Training Program; Referring Provider Student in an Organized Health Care Education/Training Program; Visit Provider Student in an Organized Health Care Education/Training Program
DX: N05.9 Unspecified nephritic syndrome with unspecified morphologic changes (principal)
CPT/HCPCS: 36415; 80048

== ENCOUNTER → 2022-03-18 15:26 | Outpatient (CLI) | payer MEDICARE, MEDICAID, SELFPAY ==
[2022-03-18 17:09] LABS: BUN Creatinine Ratio 9.5 (6-22); Blood Urea Nitrogen 31 mg/dL (9-20); Calcium 8.5 mg/dL (8.4-10.2); Carbon Dioxide 22 mmol/L (22-32); Chloride 106 mmol/L (98-107); Estimated Glomerular Filt Rate 23 mL/min (>60); Glucose 280 mg/dL (70-100); HEMOLYSIS < 15 (0-50); Sodium 138 mmol/L (137-145)
[2022-03-18 18:17] LABS: Creatinine Urine Random 66.9 mg/dL
[2022-03-18 18:23] LABS: Protein (Total) Urine Random 301 mg/dL (0-12); Protein Creatinine Ratio Urine 4.49 GRAM/24H
== END ==
PROVIDERS: PCP Student in an Organized Health Care Education/Training Program; Referring Provider Student in an Organized Health Care Education/Training Program; Visit Provider Student in an Organized Health Care Education/Training Program
DX: N05.9 Unspecified nephritic syndrome with unspecified morphologic changes (principal); R80.9 Proteinuria, unspecified
CPT/HCPCS: 36415; 80048; 82570; 84156

== ENCOUNTER → 2022-07-08 12:03 | Outpatient (CLI) | payer MEDICARE, MEDICAID, SELFPAY ==
[2022-07-08 13:58] LABS: BUN Creatinine Ratio 12.7 (6-22); Blood Urea Nitrogen 40 mg/dL (9-20); Calcium 8.3 mg/dL (8.4-10.2); Carbon Dioxide 26 mmol/L (22-32); Chloride 100 mmol/L (98-107); Estimated Glomerular Filt Rate 24 mL/min (>60); Glucose 199 mg/dL (70-100); HEMOLYSIS < 15 (0-50); Potassium 4.4 mmol/L (3.4-5.1); Sodium 137 mmol/L (137-145)
[2022-07-08 13:59] LABS: Hemoglobin A1C% w Est Avg Glu 7.6 % (4.0-6.0)
[2022-07-08 14:58] LABS: Creatinine Urine Random 76.5 mg/dL
[2022-07-08 15:05] LABS: Protein (Total) Urine Random 381 mg/dL (0-12); Protein Creatinine Ratio Urine 4.98 GRAM/24H
== END ==
PROVIDERS: PCP Student in an Organized Health Care Education/Training Program; Referring Provider Student in an Organized Health Care Education/Training Program; Visit Provider Student in an Organized Health Care Education/Training Program
DX: E11.9 Type 2 diabetes mellitus without complications (principal); N05.9 Unspecified nephritic syndrome with unspecified morphologic changes; R80.9 Proteinuria, unspecified; Z79.4 Long term (current) use of insulin
CPT/HCPCS: 36415; 80048; 82570; 83036; 84156

== ENCOUNTER 2023-01-25 20:57 | Emergency (ER) | payer MEDICARE, MEDICAID, SELFPAY ==
[2023-01-25 21:12] VITALS: BP 183/95; PULSE 75; RESP 16; TEMP 36.8; O2SAT 98; BMI 35.5
--- NOTE | 2023-01-25 21:24 | DI.RAD.S_ITS ---
PROCEDURE: XR CHEST 1V INDICATIONS: Chest pain. TECHNIQUE: One view of the chest was acquired. COMPARISON: [facility], CR, XR CHEST 1 VIEW, 11/19/2017, 10:20. FINDINGS: Surgical changes and devices: None. Lungs and pleura: Lungs are clear. No pleural effusions or pneumothorax. Mediastinum: Mediastinal contours appear normal. Heart size is normal. Bones and chest wall: No suspicious bony lesions. Overlying soft tissues appear unremarkable. IMPRESSION: 1. No acute cardiopulmonary disease. Dictated by: Ned Blank M.D. on 01/25/2023 at 21:49 Approved by: Ned Blank M.D. on 01/25/2023 at 21:51
[2023-01-25 21:40] LABS: Add Manual Diff / Slide Review NO; Basophils Absolute Auto 100 /uL (0-100); Eosinophils Absolute Auto 200 /uL (0-450); Eosinophils Percent Auto 2.3 % (2-4); Hematocrit 33.8 % (41-53); Hemoglobin 11.4 g/dL (13.5-17.5); Lymphocytes Absolute Auto 2800 /uL (1100-4500); Lymphocytes Percent Auto 26.7 % (25-40); Mean Corpuscular HGB Conc 33.7 % (30-36); Mean Corpuscular Hemoglobin 27.8 PG (26-34); Mean Corpuscular Volume 82.3 fL (80-100); Monocytes Absolute Auto 800 /uL (0-900); Monocytes Percent Auto 7.6 % (3-14); Neutrophils Absolute Auto 6600 /uL (1500-7000); Neutrophils Percent Auto 62.4 % (50-75); Platelet Count 233 X10^3/uL (150-400); Red Cell Distribution Width 14.5 % (11.6-14.8); White Blood Cell Count 10.6 X10^3/uL (4.5-11.0)
--- NOTE | 2023-01-25 21:43 | PC.NURSE ---
Pt c/o 11/17 headache, nausea & vomiting and unable to keep anything, including his medications down for past 3 days. Pt also reporting diarrhea, but says that is normal for me. Pt is type 2 diabetic with use of insulin. Denies chest pain, denies abdominal pain.
[2023-01-25 21:51] LABS: INR 1.2 (0.9-1.3); Prothrombin Time 13.5 SECONDS (10.1-12.7)
[2023-01-25 21:54] LABS: PTT Partial Thromboplastin Tim 31 SECONDS (26-36)
[2023-01-25 21:56] LABS: Alanine Aminotransferase 19 IU/L (<50); Albumin 4.2 g/dL (3.5-5.0); Albumin Globulin Ratio 1.2 (1.0-2.8); Alkaline Phosphatase 115 U/L (38-126); Aspartate Aminotransferase 20 IU/L (17-59); BUN Creatinine Ratio 10.6 (6-22); Bilirubin Total 0.5 mg/dL (0.2-1.3); Blood Urea Nitrogen 50 mg/dL (9-20); Calcium 9.5 mg/dL (8.4-10.2); Carbon Dioxide 25 mmol/L (22-32); Chloride 105 mmol/L (98-107); Creatine Kinase 106 U/L (55-170); Estimated Glomerular Filt Rate 15 mL/min (>60); Globulin 3.6 g/dL (1.7-4.1); Glucose 165 mg/dL (70-100); HEMOLYSIS < 15 (0-50); Lipase 50 U/L (23-300); Potassium 4.5 mmol/L (3.4-5.1); Sodium 142 mmol/L (137-145); Total Protein 7.8 g/dL (6.3-8.2)
[2023-01-25 21:59] VITALS: BP 165/93; PULSE 69; RESP 16; O2SAT 96
[2023-01-25 21:59] LABS: Bacteria Urine Few (2-10); Granular Casts Urine 0-1/LPF; Hyaline Casts Urine 0-1/LPF; Mucus Urine 1+ (Negative); RBC Urine 0-1/HPF (0-5/HPF); Squamous Epithelial Cell Urine 1-5 /HPF (0-5/HPF); Transitional Epi Cells Urine 0-1/HPF (0-5/HPF); WBC Urine 1-5/HPF (0-5/HPF)
[2023-01-25 22:00] LABS: Culture Indicated Urine Cult Not Indicated; Sperm Urine RARE
[2023-01-25 22:01] VITALS: PULSE 71; RESP 8; O2SAT 96
[2023-01-25 22:06] LABS: Troponin I 0.016 ng/mL (0.01-0.034)
--- NOTE | 2023-01-25 22:17 | PC.NURSE ---
Pt was yelling for a nurse and stated he got sick, I walked into the room to help and he started ripping off his cuff and leads. He started yelling and cursing at me to take his leads off. I replied that he did not need to speak to me that way and I walked out of the room to get the nurse.
--- NOTE | 2023-01-25 22:24 | PC.NURSE ---
[place] patient yell at [employer], state he wanted leads off and wanted to go in an aggressive tone, yelling at all staff members, Security on standby, Patient did allow me to remove his IV. I did not try to convince him to stay, due to his aggression and starff safety. Once IV was out, Pt stormed out of Room and left facility. found necklace and medications left in room, caught up with patient in parking lot and pt refused to take personal belongings. Called Pt's significant other informed, pt had left aggressively and did not talk all personal belongings, she stated would come pick them up in the morning.
--- NOTE | 2023-01-25 22:25 | PC.NURSE ---
Pt cursed at this RN and yelled at other staff. Pt slammed door and was threatening to staff verbally. Security called. Charge & provider made aware. Pt wanted to get the fuck out of here.
--- NOTE | 2023-01-25 22:33 | PC.NURSE ---
I entered the patient's room ED11 approximately 0 01/25/2023, where Isamar White RN, was already in conversation with the patient. The patient became agitated and volatile when I requested he sit up straight for the x-ray. The exam was done routinely with nothing notable and the patient apologized for his behavior before I left the room.
== END 2023-01-25 22:37 | disposition left against medical advice (07) ==
PROVIDERS: Emergency Provider Emergency Medicine; PCP Student in an Organized Health Care Education/Training Program
DX: I10 Essential (primary) hypertension (principal); R51.9 Headache, unspecified; R11.2 Nausea with vomiting, unspecified; R07.9 Chest pain, unspecified
CPT/HCPCS: 36415; 71045; 80053; 81003; 81015; 82550; 83690; 83735; 84484; 85025; 85610; 85730; 93005; 99283

== ENCOUNTER → 2023-02-04 11:54 | Outpatient (CLI) | payer MEDICARE, MEDICAID, SELFPAY ==
[2023-02-04 12:41] LABS: Add Manual Diff / Slide Review NO; Basophils Absolute Auto 100 /uL (0-100); Basophils Percent Auto 0.7 % (0-2); Eosinophils Absolute Auto 200 /uL (0-450); Eosinophils Percent Auto 2.5 % (2-4); Hematocrit 30.7 % (41-53); Hemoglobin 10.5 g/dL (13.5-17.5); Lymphocytes Absolute Auto 1900 /uL (1100-4500); Lymphocytes Percent Auto 21.4 % (25-40); Mean Corpuscular HGB Conc 34.2 % (30-36); Mean Corpuscular Hemoglobin 28.1 PG (26-34); Mean Corpuscular Volume 82.1 fL (80-100); Monocytes Absolute Auto 600 /uL (0-900); Monocytes Percent Auto 6.6 % (3-14); Neutrophils Absolute Auto 6200 /uL (1500-7000); Neutrophils Percent Auto 68.8 % (50-75); Platelet Count 213 X10^3/uL (150-400); Red Blood Cell Count 3.74 X10^6/uL (4.5-5.9); Red Cell Distribution Width 14.3 % (11.6-14.8); White Blood Cell Count 9.1 X10^3/uL (4.5-11.0)
[2023-02-04 12:50] LABS: Hemoglobin A1C% w Est Avg Glu 6.5 % (4.0-6.0)
[2023-02-04 12:57] LABS: HEMOLYSIS < 15 (0-50); Iron 82 ug/dL (49-181)
[2023-02-04 13:04] LABS: Alanine Aminotransferase 17 IU/L (<50); Albumin 3.8 g/dL (3.5-5.0); Albumin Globulin Ratio 1.4 (1.0-2.8); Alkaline Phosphatase 105 U/L (38-126); Aspartate Aminotransferase 16 IU/L (17-59); BUN Creatinine Ratio 11.8 (6-22); Bilirubin Total 0.3 mg/dL (0.2-1.3); Blood Urea Nitrogen 51 mg/dL (9-20); Carbon Dioxide 25 mmol/L (22-32); Chloride 106 mmol/L (98-107); Estimated Glomerular Filt Rate 16 mL/min (>60); Globulin 2.7 g/dL (1.7-4.1); Glucose 138 mg/dL (70-100); HEMOLYSIS < 15 (0-50); Sodium 138 mmol/L (137-145); Total Protein 6.5 g/dL (6.3-8.2)
[2023-02-04 13:09] LABS: Percent Iron Saturation 24 % (20-50); Total Iron Binding Capacity 342 ug/dL (261-462); Transferrin 236 mg/dL (206-381)
[2023-02-04 13:32] LABS: TSH w/ Reflex to FT4 1.65 uIU/mL (0.47-4.68)
[2023-02-04 13:38] LABS: Ferritin 26 ng/mL (18-464)
[2023-02-04 16:36] LABS: Creatinine Urine Random 77.6 mg/dL
[2023-02-04 17:10] LABS: Microalbumi Creatinin Ratio Ur 4329.8 ug/mg CR (<30)
[2023-02-05 16:18] LABS: Hep C Virus Ab w/Reflex Quant NEGATIVE s/c (NEGATIVE)
== END ==
PROVIDERS: PCP Student in an Organized Health Care Education/Training Program; Referring Provider Physician Assistant; Visit Provider Physician Assistant
DX: D64.9 Anemia, unspecified (principal); E11.22 Type 2 diabetes mellitus with diabetic chronic kidney disease; N18.5 Chronic kidney disease, stage 5
CPT/HCPCS: 36415; 80053; 82043; 82570; 82728; 83036; 83540; 83550; 84443; 85025; 86803

== ENCOUNTER → 2023-02-07 12:30 | Outpatient (CLI) | payer MEDICARE, MEDICAID, SELFPAY ==
[2023-02-07 13:16] LABS: BUN Creatinine Ratio 14.5 (6-22); Blood Urea Nitrogen 70 mg/dL (9-20); Calcium 9.5 mg/dL (8.4-10.2); Carbon Dioxide 29 mmol/L (22-32); Chloride 102 mmol/L (98-107); Estimated Glomerular Filt Rate 14 mL/min (>60); Glucose 113 mg/dL (70-100); HEMOLYSIS < 15 (0-50); Potassium 4.8 mmol/L (3.4-5.1); Sodium 139 mmol/L (137-145)
== END ==
PROVIDERS: PCP Student in an Organized Health Care Education/Training Program; Referring Provider Physician Assistant; Visit Provider Physician Assistant
DX: E11.22 Type 2 diabetes mellitus with diabetic chronic kidney disease (principal); N18.5 Chronic kidney disease, stage 5
CPT/HCPCS: 36415; 80048

== ENCOUNTER → 2023-02-11 11:48 | Outpatient (CLI) | payer MEDICARE, OTHER, MEDICAID, SELFPAY ==
[2023-02-11 12:27] LABS: Hematocrit 28.2 % (41-53); Hemoglobin 9.7 g/dL (13.5-17.5)
[2023-02-11 12:53] LABS: BUN Creatinine Ratio 12.1 (6-22); Blood Urea Nitrogen 54 mg/dL (9-20); Carbon Dioxide 26 mmol/L (22-32); Chloride 105 mmol/L (98-107); Estimated Glomerular Filt Rate 16 mL/min (>60); Glucose 93 mg/dL (70-100); HEMOLYSIS < 15 (0-50); Potassium 4.6 mmol/L (3.4-5.1); Sodium 139 mmol/L (137-145)
[2023-02-11 13:18] LABS: Creatinine Urine Random 85.7 mg/dL
[2023-02-11 13:25] LABS: Protein (Total) Urine Random 306 mg/dL (0-12); Protein Creatinine Ratio Urine 3.57 GRAM/24H
[2023-02-13 09:10] LABS: Parathyroid Hormone Int 191 pg/mL (15-65)
== END ==
PROVIDERS: Student in an Organized Health Care Education/Training Program; Referring Provider Physician Assistant; Visit Provider Physician Assistant
DX: N05.9 Unspecified nephritic syndrome with unspecified morphologic changes (principal); R80.9 Proteinuria, unspecified; D64.9 Anemia, unspecified; N25.81 Secondary hyperparathyroidism of renal origin; E11.22 Type 2 diabetes mellitus with diabetic chronic kidney disease; N18.5 Chronic kidney disease, stage 5
CPT/HCPCS: 36415; 80048; 82570; 83970; 84156; 85014; 85018

== ENCOUNTER → 2023-02-28 12:14 | Outpatient (CLI) | payer MEDICARE, OTHER, MEDICAID, SELFPAY ==
[2023-02-28 12:59] LABS: Hematocrit 29.6 % (41-53); Hemoglobin 10.2 g/dL (13.5-17.5)
[2023-02-28 13:10] LABS: HEMOLYSIS < 15 (0-50); Iron 71 ug/dL (49-181)
[2023-02-28 13:11] LABS: BUN Creatinine Ratio 10.9 (6-22); Blood Urea Nitrogen 45 mg/dL (9-20); Calcium 9.1 mg/dL (8.4-10.2); Carbon Dioxide 24 mmol/L (22-32); Chloride 106 mmol/L (98-107); Estimated Glomerular Filt Rate 17 mL/min (>60); Glucose 97 mg/dL (70-100); HEMOLYSIS < 15 (0-50); Potassium 4.6 mmol/L (3.4-5.1); Sodium 140 mmol/L (137-145)
[2023-02-28 13:20] LABS: NT-proBNP (BNP-Adult 18+) 1530 pg/mL (<125); Percent Iron Saturation 22 % (20-50); Total Iron Binding Capacity 318 ug/dL (261-462); Transferrin 239 mg/dL (206-381)
[2023-02-28 13:46] LABS: Ferritin 34 ng/mL (18-464)
== END ==
PROVIDERS: Referring Provider Student in an Organized Health Care Education/Training Program; Visit Provider Student in an Organized Health Care Education/Training Program
DX: I50.32 Chronic diastolic (congestive) heart failure (principal); N05.9 Unspecified nephritic syndrome with unspecified morphologic changes; D50.0 Iron deficiency anemia secondary to blood loss (chronic); D70.9 Neutropenia, unspecified; D63.1 Anemia in chronic kidney disease
CPT/HCPCS: 36415; 80048; 82728; 83540; 83550; 83880; 85014; 85018

== ENCOUNTER → 2023-03-18 12:43 | Outpatient (CLI) | payer MEDICARE, OTHER, MEDICAID, SELFPAY ==
--- NOTE | 2023-03-18 | DI.RAD.S_ITS ---
PROCEDURE: XR FOOT RT MIN 3V INDICATIONS: pain TECHNIQUE: 3 views of the foot were acquired. COMPARISON: [facility], CR, XR ANKLE RT MIN 3V, 03/18/2023, 13:05. FINDINGS: Bones: No fractures or dislocations. No suspicious bony lesions. Mild osteoarthritic changes in ankle and foot. Soft tissues: No tibiotalar joint effusion. Achilles tendon appears normal. Soft tissue swelling. IMPRESSION: No acute osseous abnormality. If clinical symptoms persist or clinical suspicion for pathology is high, a repeat examination in 7-10 days, or advanced imaging such as CT or MRI is suggested for further evaluation. Dictated by: Robert Caban M.D. on 03/18/2023 at 16:10 Approved by: Robert Caban M.D. on 03/18/2023 at 16:11
--- NOTE | 2023-03-18 12:53 | DI.RAD.S_ITS ---
PROCEDURE: XR ANKLE RT MIN 3V INDICATIONS: PAIN AND SWELLING IN RIGHT FOOT TECHNIQUE: 3 views of the ankle were acquired. COMPARISON: [facility], , XR FOOT RT MIN 3V, 03/18/2023, 13:08. FINDINGS: Bones: No fractures or dislocations. Ankle mortise is normally aligned. No suspicious bony lesions. Moderate osteoarthritic changes. Soft tissues: No tibiotalar joint effusion. Achilles tendon appears normal. IMPRESSION: No fracture or dislocation. Dictated by: Robert Caban M.D. on 03/18/2023 at 15:55 Approved by: Robert Caban M.D. on 03/18/2023 at 16:10
[2023-03-18 14:19] LABS: Uric Acid 12.1 mg/dL (3.5-8.5)
== END ==
PROVIDERS: Referring Provider Podiatrist; Visit Provider Podiatrist
DX: M25.571 Pain in right ankle and joints of right foot (principal); M10.9 Gout, unspecified
CPT/HCPCS: 36415; 73610; 73630; 84550

== ENCOUNTER → 2023-04-10 13:20 | Outpatient (CLI) | payer MEDICARE, OTHER, MEDICAID, SELFPAY ==
[2023-04-10 15:16] LABS: Hemoglobin 9.6 g/dL (13.5-17.5)
[2023-04-10 15:43] LABS: Iron 51 ug/dL (49-181)
[2023-04-10 15:45] LABS: BUN Creatinine Ratio 10.1 (6-22); Blood Urea Nitrogen 40 mg/dL (9-20); Carbon Dioxide 26 mmol/L (22-32); Chloride 105 mmol/L (98-107); Estimated Glomerular Filt Rate 18 mL/min (>60); Glucose 86 mg/dL (70-100); HEMOLYSIS < 15 (0-50); Sodium 138 mmol/L (137-145)
[2023-04-10 15:49] LABS: NT-proBNP (BNP-Adult 18+) 1560 pg/mL (<125)
[2023-04-10 15:52] LABS: Percent Iron Saturation 18 % (20-50); Total Iron Binding Capacity 284 ug/dL (261-462)
[2023-04-10 16:15] LABS: Ferritin 30 ng/mL (18-464)
[2023-04-12 11:48] LABS: Parathyroid Hormone Int 164 pg/mL (15-65)
== END ==
PROVIDERS: Referring Provider Student in an Organized Health Care Education/Training Program; Visit Provider Student in an Organized Health Care Education/Training Program
DX: I50.32 Chronic diastolic (congestive) heart failure (principal); D50.0 Iron deficiency anemia secondary to blood loss (chronic); N05.9 Unspecified nephritic syndrome with unspecified morphologic changes; D70.9 Neutropenia, unspecified; D63.1 Anemia in chronic kidney disease; N25.81 Secondary hyperparathyroidism of renal origin
CPT/HCPCS: 36415; 80048; 82728; 83540; 83550; 83880; 83970; 85014; 85018

== ENCOUNTER → 2023-05-08 14:19 | Outpatient (CLI) | payer MEDICARE, MEDICAID, SELFPAY ==
[2023-05-08 15:06] LABS: Uric Acid 11.3 mg/dL (3.5-8.5)
== END ==
PROVIDERS: PCP Family Medicine; Referring Provider Podiatrist; Visit Provider Podiatrist
DX: M10.9 Gout, unspecified (principal)
CPT/HCPCS: 36415; 84550

== ENCOUNTER → 2023-06-08 15:08 | Outpatient (CLI) | payer MEDICARE, MEDICAID, SELFPAY ==
[2023-06-08 15:40] LABS: Hematocrit 30.8 % (41-53); Hemoglobin 10.5 g/dL (13.5-17.5)
[2023-06-08 16:16] LABS: HEMOLYSIS < 15 (0-50); Iron 62 ug/dL (49-181)
[2023-06-08 16:18] LABS: BUN Creatinine Ratio 11.6 (6-22); Blood Urea Nitrogen 50 mg/dL (9-20); Calcium 8.9 mg/dL (8.4-10.2); Carbon Dioxide 29 mmol/L (22-32); Chloride 101 mmol/L (98-107); Estimated Glomerular Filt Rate 16 mL/min (>60); Glucose 119 mg/dL (70-100); HEMOLYSIS < 15 (0-50); Potassium 4.5 mmol/L (3.4-5.1); Sodium 139 mmol/L (137-145)
[2023-06-08 16:27] LABS: Percent Iron Saturation 20 % (20-50); Total Iron Binding Capacity 303 ug/dL (261-462); Transferrin 247 mg/dL (206-381)
[2023-06-08 16:28] LABS: NT-proBNP (BNP-Adult 18+) 1100 pg/mL (<125)
[2023-06-08 16:54] LABS: Ferritin 29 ng/mL (18-464)
[2023-06-10 05:31] LABS: Parathyroid Hormone Int 181 pg/mL (15-65)
== END ==
LOC: LAB 15:10
PROVIDERS: PCP Family Medicine; Referring Provider Student in an Organized Health Care Education/Training Program; Visit Provider Student in an Organized Health Care Education/Training Program
DX: N05.9 Unspecified nephritic syndrome with unspecified morphologic changes (principal); I50.32 Chronic diastolic (congestive) heart failure; D50.0 Iron deficiency anemia secondary to blood loss (chronic); D70.9 Neutropenia, unspecified; D63.1 Anemia in chronic kidney disease; N25.81 Secondary hyperparathyroidism of renal origin
CPT/HCPCS: 36415; 80048; 82728; 83540; 83550; 83880; 83970; 85014; 85018

== ENCOUNTER → 2023-08-06 15:42 | Outpatient (CLI) | payer MEDICARE, MEDICAID, SELFPAY ==
[2023-08-06 17:08] LABS: Add Manual Diff / Slide Review NO; Basophils Absolute Auto 100 /uL (0-100); Eosinophils Absolute Auto 300 /uL (0-450); Eosinophils Percent Auto 3.4 % (2-4); Hematocrit 31.7 % (41-53); Hemoglobin 10.7 g/dL (13.5-17.5); Lymphocytes Absolute Auto 1800 /uL (1100-4500); Mean Corpuscular HGB Conc 33.9 % (30-36); Mean Corpuscular Hemoglobin 27.4 PG (26-34); Mean Corpuscular Volume 80.8 fL (80-100); Monocytes Absolute Auto 600 /uL (0-900); Monocytes Percent Auto 7.5 % (3-14); Neutrophils Absolute Auto 5400 /uL (1500-7000); Neutrophils Percent Auto 66.1 % (50-75); Platelet Count 261 X10^3/uL (150-400); Red Blood Cell Count 3.92 X10^6/uL (4.5-5.9); Red Cell Distribution Width 15.3 % (11.6-14.8); White Blood Cell Count 8.2 X10^3/uL (4.5-11.0)
[2023-08-06 18:26] LABS: Alanine Aminotransferase 20 IU/L (<50); Albumin 3.7 g/dL (3.5-5.0); Albumin Globulin Ratio 1.2 (1.0-2.8); Alkaline Phosphatase 104 U/L (38-126); Aspartate Aminotransferase 18 IU/L (17-59); BUN Creatinine Ratio 9.6 (6-22); Bilirubin Total 0.4 mg/dL (0.2-1.3); Blood Urea Nitrogen 44 mg/dL (9-20); Calcium 8.9 mg/dL (8.4-10.2); Carbon Dioxide 29 mmol/L (22-32); Chloride 107 mmol/L (98-107); Estimated Glomerular Filt Rate 15 mL/min (>60); Globulin 3.1 g/dL (1.7-4.1); Glucose 142 mg/dL (70-100); HEMOLYSIS < 15 (0-50); Potassium 4.6 mmol/L (3.4-5.1); Sodium 140 mmol/L (137-145); Total Protein 6.8 g/dL (6.3-8.2); Uric Acid 11.6 mg/dL (3.5-8.5)
[2023-08-06 18:32] LABS: NT-proBNP (BNP-Adult 18+) 1380 pg/mL (<125)
[2023-08-06 18:57] LABS: Iron 68 ug/dL (49-181)
[2023-08-06 18:58] LABS: Ferritin 23 ng/mL (18-464)
[2023-08-06 19:08] LABS: Total Iron Binding Capacity 288 ug/dL (261-462)
[2023-08-08 09:09] LABS: Parathyroid Hormone Int 193 pg/mL (15-65)
== END ==
PROVIDERS: PCP Family Medicine; Referring Provider Student in an Organized Health Care Education/Training Program; Visit Provider Student in an Organized Health Care Education/Training Program
DX: M10.9 Gout, unspecified (principal); I50.32 Chronic diastolic (congestive) heart failure; N05.9 Unspecified nephritic syndrome with unspecified morphologic changes; D50.0 Iron deficiency anemia secondary to blood loss (chronic); D70.9 Neutropenia, unspecified; D63.1 Anemia in chronic kidney disease; N25.81 Secondary hyperparathyroidism of renal origin
CPT/HCPCS: 36415; 80053; 82728; 83540; 83550; 83880; 83970; 84550; 85025

== ENCOUNTER → 2023-09-21 14:46 | Outpatient (CLI) | payer MEDICARE, MEDICAID, SELFPAY ==
[2023-09-21 15:06] LABS: Appearance Urine UA CLEAR; Bilirubin Urine UA NEGATIVE (NEGATIVE); Color Urine UA YELLOW; Glucose Urine UA NEGATIVE (Negative); Ketones Urine UA NEGATIVE (NEGATIVE); Leukocyte Esterase Urine UA NEGATIVE (NEGATIVE); Nitrite Urine UA NEGATIVE (Negative); Occult Blood Urine UA 2+ (Negative); Protein Urine UA 3+ (Negative); Specific Gravity Urine UA 1.025 (1.000-1.035); Urobilinogen Urine UA 0.2 E.U./dL (0.2)
[2023-09-21 15:28] LABS: Bacteria Urine Few (2-10); Culture Indicated Urine Specimen Cultured; RBC Urine 5-10/HPF (0-5/HPF); Squamous Epithelial Cell Urine 5-10 /HPF (0-5/HPF); Urine Volume 10mL (spun); WBC Urine 5-10/HPF (0-5/HPF)
== END ==
PROVIDERS: PCP Family Medicine; Visit Provider Nurse Practitioner Family
DX: R10.9 Unspecified abdominal pain (principal)
CPT/HCPCS: 81001; 87086

== ENCOUNTER → 2023-10-06 10:11 | Outpatient (CLI) | payer MEDICARE, MEDICAID, SELFPAY ==
[2023-10-06 11:16] LABS: Hematocrit 28.4 % (41-53); Hemoglobin 9.7 g/dL (13.5-17.5)
[2023-10-06 11:37] LABS: HEMOLYSIS < 15 (0-50); Iron 55 ug/dL (49-181)
[2023-10-06 11:40] LABS: BUN Creatinine Ratio 9.8 (6-22); Blood Urea Nitrogen 46 mg/dL (9-20); Calcium 8.2 mg/dL (8.4-10.2); Carbon Dioxide 27 mmol/L (22-32); Chloride 107 mmol/L (98-107); Estimated Glomerular Filt Rate 15 mL/min (>60); Glucose 144 mg/dL (70-100); HEMOLYSIS < 15 (0-50); Potassium 4.4 mmol/L (3.4-5.1); Sodium 140 mmol/L (137-145)
[2023-10-06 11:50] LABS: Percent Iron Saturation 23 % (20-50); Total Iron Binding Capacity 240 ug/dL (261-462); Transferrin 187 mg/dL (206-381)
[2023-10-06 12:15] LABS: Ferritin 37 ng/mL (18-464)
== END ==
PROVIDERS: PCP Family Medicine; Referring Provider Student in an Organized Health Care Education/Training Program; Visit Provider Student in an Organized Health Care Education/Training Program
DX: N05.9 Unspecified nephritic syndrome with unspecified morphologic changes (principal); D50.0 Iron deficiency anemia secondary to blood loss (chronic); D70.9 Neutropenia, unspecified; D63.1 Anemia in chronic kidney disease; N25.81 Secondary hyperparathyroidism of renal origin
CPT/HCPCS: 36415; 80048; 82728; 83540; 83550; 83970; 85014; 85018

== ENCOUNTER → 2023-11-16 15:42 | Outpatient (CLI) | payer MEDICARE, MEDICAID, SELFPAY ==
[2023-11-16 17:22] LABS: Hematocrit 32.5 % (41-53); Hemoglobin 11.1 g/dL (13.5-17.5)
[2023-11-16 18:02] LABS: Iron 75 ug/dL (49-181)
[2023-11-16 18:13] LABS: Total Iron Binding Capacity 278 ug/dL (261-462)
[2023-11-16 18:16] LABS: Blood Urea Nitrogen 47 mg/dL (9-20); Calcium 8.9 mg/dL (8.4-10.2); Carbon Dioxide 29 mmol/L (22-32); Chloride 106 mmol/L (98-107); Estimated Glomerular Filt Rate 13 mL/min (>60); Glucose 172 mg/dL (70-100); HEMOLYSIS < 15 (0-50); Sodium 141 mmol/L (137-145)
[2023-11-16 18:30] LABS: Potassium 5.6 mmol/L (3.4-5.1)
[2023-11-16 18:46] LABS: Ferritin 39 ng/mL (18-464)
== END ==
PROVIDERS: PCP Family Medicine; Referring Provider Student in an Organized Health Care Education/Training Program; Visit Provider Student in an Organized Health Care Education/Training Program
DX: D50.0 Iron deficiency anemia secondary to blood loss (chronic) (principal); N05.9 Unspecified nephritic syndrome with unspecified morphologic changes; D70.9 Neutropenia, unspecified; D63.1 Anemia in chronic kidney disease; N25.81 Secondary hyperparathyroidism of renal origin
CPT/HCPCS: 36415; 80048; 82728; 83540; 83550; 83970; 85014; 85018

== ENCOUNTER → 2023-11-19 14:21 | Outpatient (CLI) | payer MEDICARE, MEDICAID, SELFPAY ==
[2023-11-19 15:58] LABS: HEMOLYSIS < 15 (0-50); Potassium 4.2 mmol/L (3.4-5.1)
== END ==
LOC: LAB 14:24
PROVIDERS: PCP Family Medicine; Referring Provider Student in an Organized Health Care Education/Training Program; Visit Provider Student in an Organized Health Care Education/Training Program
DX: E87.5 Hyperkalemia (principal)
CPT/HCPCS: 36415; 84132

== ENCOUNTER → 2023-11-23 17:14 | Outpatient (CLI) | payer MEDICARE, MEDICAID, SELFPAY ==
--- NOTE | 2023-11-23 17:20 | DI.RAD.S_ITS ---
PROCEDURE: XR CHEST 2V INDICATIONS: TUBERCULOSIS SCREEN TECHNIQUE: 2 views of the chest were acquired. COMPARISON: [facility], CR, XR CHEST 1V, 01/25/2023, 21:27. FINDINGS: Surgical changes and devices: None. Lungs and pleura: Lungs are clear. No pleural effusions or pneumothorax. Mediastinum: Mediastinal contours are normal. Heart size is normal. Bones and chest wall: No suspicious bony abnormalities. Soft tissues appear unremarkable. IMPRESSION: No acute cardiopulmonary abnormality is seen. Dictated by: Richie Carbone M.D. on 11/24/2023 at 11:12 Approved by: Richie Carbone M.D. on 11/24/2023 at 11:12
[2023-11-23 19:14] LABS: Hepatitis B Surface Antigen NEGATIVE s/c (NEGATIVE)
[2023-11-23 19:20] LABS: Hep C Virus Ab w/Reflex Quant NEGATIVE s/c (NEGATIVE)
[2023-11-25 01:08] LABS: Hepatitis B Core Antibody Negative (Negative)
[2023-11-25 07:14] LABS: Hepatitis B Surf Ab Qualitativ Non Reactive (.)
== END ==
PROVIDERS: PCP Family Medicine; Referring Provider Student in an Organized Health Care Education/Training Program; Visit Provider Student in an Organized Health Care Education/Training Program
DX: Z11.1 Encounter for screening for respiratory tuberculosis (principal); N18.6 End stage renal disease; B19.10 Unspecified viral hepatitis B without hepatic coma; B17.10 Acute hepatitis C without hepatic coma
CPT/HCPCS: 36415; 71046; 86704; 86706; 86803; 87340

== ENCOUNTER → 2023-12-25 15:38 | Outpatient (CLI) | payer MEDICARE, MEDICAID, SELFPAY ==
[2023-12-25 16:44] LABS: Influenza A - CEPHEID Flu A NEGATIVE (NEGATIVE); Influenza B - CEPHEID Flu B NEGATIVE (NEGATIVE); Respiratory Syncytial Virus Negative (Negative)
[2023-12-25 16:45] LABS: COVID-19 CEPHEID 4-PLEX PCR Negative (Negative)
== END ==
PROVIDERS: PCP Family Medicine; Visit Provider Family Medicine
DX: Z20.822 Contact with and (suspected) exposure to COVID-19 (principal)
CPT/HCPCS: 0241U

== ENCOUNTER 2024-01-03 18:24 | Emergency (ER) | payer MEDICARE, MEDICAID, SELFPAY ==
[2024-01-03] VITALS (17 sets, daily range): BP systolic 102–127; BP diastolic 56–81; PULSE 69–80; RESP 16–27; TEMP 36.1; O2SAT 87–97; BMI 27.8
--- NOTE | 2024-01-03 18:49 | ED_ITS ---
HPI - Fall <Tena Tanner MD - Last Filed: 01/05/24 01:43> General Chief Complaint: Fall Stated Complaint: GLF, hit head, no blood thinners, dialysis pt Time Seen by Provider: 01/03/24 18:39 Mode of arrival: Ambulatory History of Present Illness HPI Narrative: 48-year-old male with history of ESRD on Thursday dialysis, insulin-dependent diabetes, hypertension presents by private vehicle from home for evaluation of nonproductive cough and pain after a fall. Patient states that he tripped over the dog, landing on his left knee and then tapping the side of his head against the ground. Denies loss of consciousness, denies use of blood thinners. States that for the last 3 weeks he was had a productive cough and shortness of breath that is not getting better. He has brought it up to his primary doctor and welt rougher, who tested him for covid, which was negative, and placed on several days of prednisone, which do not seem to be helping the patient's symptoms.. Patient was noted to be mildly hypoxic on arrival with saturations in the mid to upper 80s. He was taken to ER bed and placed on nasal cannula. Related Data Home Medications Medication Instructions Recorded Confirmed nifedipine 30 mg tablet,extended 30 mg PO DAILY 07/22/23 01/04/24 release clonidine 0.3 mg/24 hr weekly 1 patch topical 09/21/23 12/25/23 transdermal patch insulin glargine 100 unit/mL (3 25 unit SUBCUT QDAY 12/25/23 12/25/23 mL) subcutaneous pen (Lantus Solostar U-100 Insulin) calcitriol 0.25 mcg capsule 0.25 mcg PO DAILY 01/04/24 01/04/24 ferrous sulfate 325 mg (65 mg 325 mg PO DAILY 01/04/24 01/04/24 iron) tablet Previous Rx's Medication Instructions Recorded LACETS #1 ea 03/14/21 True Metrix Blood Glucose Test #100 ea 03/14/21 Strips ondansetron 4 mg disintegrating 4 mg PO Q8H PRN nausea and 10/09/21 tablet vomiting #21 tabs pen needle, diabetic 32 gauge x #400 ea 05/28/22 insulin lispro 100 unit/mL See Rx Instructions .Route 03/31/23 subcutaneous pen (Humalog KwikPen .COMPLEX #15 mL (U-100) Insulin) sildenafil (pulm.hypertension) 20 20 mg PO .COMPLEX PRN sexual 08/20/22 mg tablet activity #30 tabs pen needle, diabetic 31 gauge x #100 ea 04/22/23 5/16 (Easy Comfort Pen Grace) blood-glucose sensor (FreeStyle #2 ea 06/23/23 Fabiana 3 Sensor device) alprazolam 0.5 mg tablet 0.5 mg PO BEDTIME PRN sleep #30 10/06/23 tabs pregabalin 50 mg capsule 50 mg PO TID #90 caps 10/08/23 clonidine HCl 0.1 mg tablet 0.1 mg PO DAILY #30 tabs 10/12/23 furosemide 40 mg tablet 40 mg PO DAILY #30 tabs 10/23/23 venlafaxine 150 mg 150 mg PO DAILY #60 caps 10/24/23 capsule,extended release 24 hr atorvastatin 20 mg tablet 20 mg PO DAILY #90 tabs 10/30/23 carvedilol 25 mg tablet 25 mg PO BID #180 tabs 10/30/23 pantoprazole 40 mg tablet,delayed 40 mg PO DAILY #30 tabs 12/14/23 release Handicap Placard #1 ea 12/25/23 bupropion HCl 150 mg 24 hr tablet, 150 mg PO 3XW #36 tabs 12/28/23 extended release pregabalin 75 mg capsule 75 mg PO 3XW #36 caps 12/28/23 venlafaxine 37.5 mg 37.5 mg PO DAILY #90 caps 12/28/23 capsule,extended release 24 hr loperamide 2 mg capsule 2 mg PO BID PRN diarrhea #60 caps 12/29/23 Allergies Allergy/AdvReac Type Severity Reaction Status Date / Time Penicillins [PENICILLINS] Allergy Intermediate rash Verified 01/03/24 18:31 hydralazine Allergy Mild UPPER BODY Verified 01/03/24 18:31 SWELLING amlodipine Allergy swelling Verified 01/03/24 18:31 latex Allergy Rash Verified 01/03/24 18:31 Patient History <Tena Tanner MD - Last Filed: 01/05/24 01:43> Medical History Right shoulder pain Anemia Nocturnal hypoxemia (~09/10/20) Obstructive sleep apnea, adult (09/10/20) Tobacco use disorder, continuous Snoring Obesity (BMI 30-39.9) Insomnia due to medical condition (~09/10/20) GERD (gastroesophageal reflux disease) Fatigue due to sleep pattern disturbance Vision disorder Right hand fracture Neuropathy HTN (hypertension) Human bite of right hand Surgical History Anesthesia Right hand fracture Family History Mother Diabetes mellitus Hypertension Hyperlipidemia Stroke Loud snoring Sleep apnea Restless leg Depression Anxiety Alcohol abuse Substance abuse Autism Family/Other Loud snoring Sleep apnea Hypertension Diabetes mellitus Heart disease Dementia Alcohol abuse Family/Other Loud snoring Sleep apnea Obesity Anxiety Depression ADD (attention deficit disorder) Alcohol abuse Substance abuse Social History Smoking Status: Former smoker Smoking Status: Former smoker tobacco type: smokeless tobacco alcohol intake frequency: other Substance Use Type: marijuana Exam <Tena Tanner MD - Last Filed: 01/05/24 01:43> Initial Vital Signs Initial Vital Signs: Vital Signs Temperature 97.0 F L 01/03/24 18:32 Pulse Rate 79 01/03/24 18:32 Respiratory Rate 18 01/03/24 18:32 Blood Pressure 102/62 01/03/24 18:32 Pulse Oximetry 90 L 01/03/24 18:32 Oxygen Delivery Method Room Air 01/03/24 18:32 Const: Awake, alert, appears chronically unwell, ill-appearing, nontoxic HEENT: PERRL, EOMI, no skull stepoffs or deformities Cardiac: regular rate, regular rhythm RESP: Unlabored, coarse breath sounds diffusely, faint expiratory wheezes GI: Soft, nontender, nondistended, no rebound, no guarding MSK: Atraumatic, full range of motion, pulses equal, no deformity Skin: Warm, Dry, intact, no rashes Neuro: AO x3, CN II-XII grossly intact, moves all extremities <Tena Forbes DO - Last Filed: 01/04/24 19:08> Initial Vital Signs Initial Vital Signs: Vital Signs Temperature 97.0 F L 01/03/24 18:32 Pulse Rate 79 01/03/24 18:32 Respiratory Rate 18 01/03/24 18:32 Blood Pressure 102/62 01/03/24 18:32 Pulse Oximetry 90 L 01/03/24 18:32 Oxygen Delivery Method Room Air 01/03/24 18:32 Course <Tena Tanner MD - Last Filed: 01/05/24 01:43> Orders Ordered: Discontinued Medications Albuterol/Ipratropium (Albuterol/Ipratropium 3 Ml Ampul) 3 ml INH NOW ONE Stop: 01/03/24 18:48 Last Admin: 01/03/24 19:10 Dose: 3 ml Documented By: EDINSON Ceftriaxone Sodium 2,000 mg/ (Sodium Chloride) 100 mls @ 200 mls/hr IV NOW ONE Stop: 01/03/24 19:49 Last Infusion: 01/03/24 20:37 Dose: Infused Documented By: Admin: 01/03/24 19:57 Dose: 200 mls/hr Documented By: Azithromycin 500 mg/ Dextrose 250 mls @ 250 mls/hr IV NOW ONE Stop: 01/03/24 19:49 Last Infusion: 01/03/24 21:55 Dose: Infused Documented By: Admin: 01/03/24 20:38 Dose: 250 mls/hr Documented By: KARSON Insulin Human Regular (Insulin Regular 100 Unit/Ml 3 Ml Vial) 5 unit SUBCUT NOW ONE Stop: 01/04/24 11:32 Last Admin: 01/04/24 11:43 Dose: 5 unit Documented By: DENISSE Co-signed By: RL Vital Signs Vital signs: Vital Signs - 8 hr 01/04/24 11:16 01/04/24 11:16 01/04/24 11:30 Pulse Rate 75 75 Respiratory Rate 16 22 Blood Pressure 117/66 Pulse Oximetry 97 98 Oxygen Delivery Method Oxygen Flow Rate 01/04/24 12:00 01/04/24 12:00 Pulse Rate 77 Respiratory Rate 21 Blood Pressure 138/69 Pulse Oximetry 94 Oxygen Delivery Method Oximask Oxygen Flow Rate 6 <Tena Forbes DO - Last Filed: 01/04/24 19:08> Orders Ordered: Discontinued Medications Albuterol/Ipratropium (Albuterol/Ipratropium 3 Ml Ampul) 3 ml INH NOW ONE Stop: 01/03/24 18:48 Last Admin: 01/03/24 19:10 Dose: 3 ml Documented By: EDINSON Ceftriaxone Sodium 2,000 mg/ (Sodium Chloride) 100 mls @ 200 mls/hr IV NOW ONE Stop: 01/03/24 19:49 Last Infusion: 01/03/24 20:37 Dose: Infused Documented By: Admin: 01/03/24 19:57 Dose: 200 mls/hr Documented By: Azithromycin 500 mg/ Dextrose 250 mls @ 250 mls/hr IV NOW ONE Stop: 01/03/24 19:49 Last Infusion: 01/03/24 21:55 Dose: Infused Documented By: Admin: 01/03/24 20:38 Dose: 250 mls/hr Documented By: KARSON Insulin Human Regular (Insulin Regular 100 Unit/Ml 3 Ml Vial) 5 unit SUBCUT NOW ONE Stop: 01/04/24 11:32 Last Admin: 01/04/24 11:43 Dose: 5 unit Documented By: DENISSE Co-signed By: SUYAPA Vital Signs Vital signs: Vital Signs - 8 hr 01/04/24 11:16 01/04/24 11:16 01/04/24 11:30 Pulse Rate 75 75 Respiratory Rate 16 22 Blood Pressure 117/66 Pulse Oximetry 97 98 Oxygen Delivery Method Oxygen Flow Rate 01/04/24 12:00 01/04/24 12:00 Pulse Rate 77 Respiratory Rate 21 Blood Pressure 138/69 Pulse Oximetry 94 Oxygen Delivery Method Oximask Oxygen Flow Rate 6 MDM - Fall <Tena Tanner MD - Last Filed: 01/05/24 01:43> Lab Data 01/04/24 06:16 01/04/24 06:16 Labs: Lab Results 01/03/24 01/03/24 01/03/24 Range/Units 18:45 18:50 19:17 WBC 17.6 H (4.5-11.0) X10^3/uL RBC 3.33 L (4.5-5.9) X10^6/uL Hgb 9.6 L (13.5-17.5) g/dL Hct 27.8 L (41-53) % MCV 83.7 (80-100) fL MCH 28.9 (26-34) PG MCHC 34.6 (30-36) % RDW 14.7 (11.6-14.8) % Plt Count 364 (150-400) X10^3/uL Neut % (Auto) 77.2 H (50-75) % Lymph % (Auto) 13.0 L (25-40) % Hendricks % (Auto) 8.7 (3-14) % Eos % (Auto) 0.5 L (2-4) % Baso % (Auto) 0.6 (0-2) % Neut # (Auto) 82281 H (1003-7355) /uL Lymph # (Auto) 2300 (0098-3092) /uL Hendricks # (Auto) 1500 H (0-900) /uL Eos # (Auto) 100 (0-450) /uL Baso # (Auto) 100 (0-100) /uL PT 15.2 H (9.4-12.5) SECONDS INR 1.3 (0.9-1.3) ABG Sample Site Right brachial ABG pH 7.46 H (7.35-7.45) ABG pCO2 41.6 (35-45) mmHg ABG pO2 66 L (80-100) mmHg ABG HCO3 29 H (23-27) mmol/L ABG Total CO2 29 H (23-27) mmol/L ABG O2 Saturation 94 L (95-100) % ABG Base Excess 5.0 H (-2-3) mmol/L Heath Test N/a O2 Delivery Device 2 lpm nc FiO2 % 28.0 % % Sodium 133 L (137-145) mmol/L Potassium 3.8 (3.4-5.1) mmol/L Chloride 94 L (98-107) mmol/L Carbon Dioxide 32 (22-32) mmol/L BUN 28 H (9-20) mg/dL Creatinine 4.19 H (0.66-1.25) mg/dL Estimated GFR 17 L (>60) mL/min BUN/Creatinine Ratio 6.7 (6-22) Glucose 242 H (70-100) mg/dL Calcium 8.7 (8.4-10.2) mg/dL Magnesium 1.7 (1.6-2.3) mg/dL Total Bilirubin 0.6 (0.2-1.3) mg/dL AST 67 H (17-59) IU/L ALT 16 (<50) IU/L Alkaline Phosphatase 123 (38-126) U/L Total Creatine Kinase 47 L (55-170) U/L Troponin I < 0.012 (0.01-0.034) ng/mL NT-Pro-B Natriuret Pep 3660 H (<125) pg/mL Total Protein 7.0 (6.3-8.2) g/dL Albumin 3.5 (3.5-5.0) g/dL Globulin 3.5 (1.7-4.1) g/dL Albumin/Globulin Ratio 1.0 (1.0-2.8) Procalcitonin 0.333 (<0.5) ng/mL Chlamy pneumoniae PCR Not detected (Not Detect) Adenovirus (PCR) Not detected (Not Detect) B.parapertussis DNA PCR Not detected (Not Detecte) Coronavirus OC43 (PCR) Not detected (Not Detect) Coronavirus HKU1 (PCR) Not detected (Not Detect) Coronavirus 229E (PCR) Not detected (Not Detect) SARS-CoV-2 (PCR) Not detected (Not Detecte) Coronavirus NL63 (PCR) Not detected (Not Detect) Human Metapneumovir PCR Not detected (Not Detect) Influenza Type A (PCR) Not detected (Not Detect) Influenza Type B (PCR) Not detected (Not Detect) M. pneumoniae (PCR) Not detected (Not Detect) Parainfluenza 1 (PCR) Not detected (Not Detect) Parainfluenza 2 (PCR) Not detected (Not Detect) Parainfluenza 3 (PCR) Not detected (Not Detect) Parainfluenza 4 (PCR) Not detected (Not Detect) RSV (PCR) Not detected (Not Detect) Entero/Rhino (PCR) Not detected (Not Detect) 01/04/24 Range/Units 06:16 WBC 16.9 H (4.5-11.0) X10^3/uL RBC 3.08 L (4.5-5.9) X10^6/uL Hgb 8.6 L (13.5-17.5) g/dL Hct 24.9 L (41-53) % MCV 81.1 (80-100) fL MCH 28.0 (26-34) PG MCHC 34.5 (30-36) % RDW 15.0 H (11.6-14.8) % Plt Count 293 (150-400) X10^3/uL Neut % (Auto) 79.9 H (50-75) % Lymph % (Auto) 11.2 L (25-40) % Hendricks % (Auto) 7.9 (3-14) % Eos % (Auto) 0.6 L (2-4) % Baso % (Auto) 0.4 (0-2) % Neut # (Auto) 39583 H (6049-2088) /uL Lymph # (Auto) 1900 (6552-4413) /uL Hendricks # (Auto) 1300 H (0-900) /uL Eos # (Auto) 100 (0-450) /uL Baso # (Auto) 100 (0-100) /uL PT (9.4-12.5) SECONDS INR (0.9-1.3) ABG Sample Site ABG pH (7.35-7.45) ABG pCO2 (35-45) mmHg ABG pO2 (80-100) mmHg ABG HCO3 (23-27) mmol/L ABG Total CO2 (23-27) mmol/L ABG O2 Saturation (95-100) % ABG Base Excess (-2-3) mmol/L Heath Test O2 Delivery Device FiO2 % % Sodium 135 L (137-145) mmol/L Potassium 4.2 (3.4-5.1) mmol/L Chloride 95 L (98-107) mmol/L Carbon Dioxide 33 H (22-32) mmol/L BUN 33 H (9-20) mg/dL Creatinine 5.05 H (0.66-1.25) mg/dL Estimated GFR 13 L (>60) mL/min BUN/Creatinine Ratio 6.5 (6-22) Glucose 186 H (70-100) mg/dL Calcium 8.6 (8.4-10.2) mg/dL Magnesium (1.6-2.3) mg/dL Total Bilirubin (0.2-1.3) mg/dL AST (17-59) IU/L ALT (<50) IU/L Alkaline Phosphatase (38-126) U/L Total Creatine Kinase (55-170) U/L Troponin I (0.01-0.034) ng/mL NT-Pro-B Natriuret Pep (<125) pg/mL Total Protein (6.3-8.2) g/dL Albumin (3.5-5.0) g/dL Globulin (1.7-4.1) g/dL Albumin/Globulin Ratio (1.0-2.8) Procalcitonin (<0.5) ng/mL Chlamy pneumoniae PCR (Not Detect) Adenovirus (PCR) (Not Detect) B.parapertussis DNA PCR (Not Detecte) Coronavirus OC43 (PCR) (Not Detect) Coronavirus HKU1 (PCR) (Not Detect) Coronavirus 229E (PCR) (Not Detect) SARS-CoV-2 (PCR) (Not Detecte) Coronavirus NL63 (PCR) (Not Detect) Human Metapneumovir PCR (Not Detect) Influenza Type A (PCR) (Not Detect) Influenza Type B (PCR) (Not Detect) M. pneumoniae (PCR) (Not Detect) Parainfluenza 1 (PCR) (Not Detect) Parainfluenza 2 (PCR) (Not Detect) Parainfluenza 3 (PCR) (Not Detect) Parainfluenza 4 (PCR) (Not Detect) RSV (PCR) (Not Detect) Entero/Rhino (PCR) (Not Detect) Point of Care Testing Glucose POC 263 Imaging Data Chest x-ray: Radiologist's Impression: PROCEDURE: XR CHEST 1V INDICATIONS: cough x3 wks, hypoxia, dialysis pt TECHNIQUE: One view of the chest was acquired. COMPARISON: [facility], CR, XR CHEST 1 VIEW, 02/04/2023, 16:50. [facility], CR, XR CHEST 1V, 01/25/2023, 21:27. [facility], CR, XR CHEST 2V, 11/23/2023, 17:43. FINDINGS: Surgical changes and devices: None. Lungs and pleura: On this semiupright portable chest examination, no large pneumothorax or large pleural effusions are seen. No focal infiltrates are seen. Low lung volumes are noted. This causes a crowded appearance to the lung markings and limits evaluation. Mediastinum: Mediastinal contours appear normal. Heart size is normal. Bones and chest wall: No suspicious bony lesions. Overlying soft tissues appear unremarkable. IMPRESSION: Limited portable chest study, without infiltrate seen. Dictated by: Zack Echeverria M.D. on 01/03/2024 at 19:11 Approved by: Zack Echeverria M.D. on 01/03/2024 at 19:11 CT scan - chest: Radiologist's Impression: PROCEDURE: CT CHEST WO CON INDICATIONS: cough, hypoxia, neg cxr TECHNIQUE: Noncontrast 5 mm thick sections acquired from the pulmonary apices to the posterior costophrenic angles. 1 mm lung window, 5 mm thick coronal and sagittal and 7 mm axial MIP reformats were then acquired. For radiation dose reduction, the following was used: automated exposure control, adjustment of mA and/or kV according to patient size. COMPARISON: [facility], CR, XR CHEST 2V, 11/23/2023, 17:43. [facility], CR, XR CHEST 1V, 01/03/2024, 19:43. FINDINGS: Image quality: Diagnostic. Lower Neck: No enlarged lymph nodes. Thyroid: No thyroid nodules which require sonographic follow up, per consensus guidelines. Axillae: No enlarged lymph nodes. Chest Wall: Unremarkable. Bones: Unremarkable. Lungs and Pleura: Multifocal nodular infiltrate can be seen involving both lower lobes, right worse than left. A mild degree of patchy nodular infiltrate is also seen involving right middle lobe. No pneumothorax or pleural effusions are seen. Heart: Heart size is normal. No pericardial effusion. There is moderate coronary artery calcification Thoracic Vessels: The aorta and pulmonary arteries demonstrate normal size. Mediastinum and Vidhya: No enlarged lymph nodes. Esophagus: No wall thickening. No hiatal hernia. Upper Abdomen: Visualized upper abdomen solid organs and bowel loops appear normal. IMPRESSION: Multifocal patchy nodular infiltrate can be seen, which is worst within the right lower lobe. (This is not well seen on the prior chest radiograph, even in retrospect.) Additional findings: Moderate coronary artery calcification Dictated by: Zack Echeverria M.D. on 01/03/2024 at 20:20 Approved by: Zack Echeverria M.D. on 01/03/2024 at 20:23 ECG Data Interpretation: Normal sinus rhythm at 75 beats per minute. Normal WA, no ST T wave changes, no STEMI MDM Narrative Medical decision making narrative: Ill-appearing but nontoxic patient presenting for cough and for general evaluation after ground level fall. Found to be hypoxic on room air. Taken quickly to ER bed and placed on supplemental nasal cannula. Lungs sound generally coarse to auscultation, patient reports a full dialysis treatment yesterday. Respiratory therapy paged to evaluate the patient. Laboratory work shows WBC count 17.6, hemoglobin 9.6 (baseline), platelets 364, sodium 133, potassium 3.8, creatinine 4.19, glucose 242, troponin undetectable, BNP 3660. Chest x-ray negative for acute findings, however with patient's leukocytosis and hypoxia plan to order a CT chest. Leukocytosis may be at least partially related to recent prednisone use, however since patient is hypoxic as well cannot r/o infectious process. Rocephin and azithromycin ordered for coverage. CT chest shows multifocal pneumonia. Patient has been given Rocephin and azithromycin already. Patient was a dialysis patient, it was not due for dialysis for greater than 24 hours, however since we do not have dialysis capabilities likely will not be able to admit at our facility. Reach out to [facility] since patient gets his dialysis at [facility], however they do not have any available beds. Patient will be monitored overnight, we will discuss with hospitalist in the morning. He was still requiring supplemental nasal cannula. Overnight patient required additional supplemental nasal cannula, increasing from 2 L to 4 L. reached out to [facility], who requested that we retry [facility] tomorrow once beds are available. If [facility] does not have a bed then they can consider taking the patient for transfer. Care of patient is signed out to Dr. Forbes at 0700. 01/04/2024 Dr. Forbes: Patient is seen and evaluated by myself signed out to myself by Dr. Tanner while awaiting potential transfer. Patient appearing, nontoxic has cough on examination is on 4 L O2 90 91%. Patient has end-stage renal disease on dialysis insulin-dependent diabetic since his 30s who states he had a fell when he tripped over his dog yesterday and when he came in for evaluation was found to have multifocal pneumonia on CT imaging. Patient has not had fluids secondary to being end-stage renal disease, he receives dialysis on Thursday, Thursday and has received regular dialysis with a full treatment on Thursday. Has received Rocephin and azithromycin here in the department and 1 DuoNeb. Patient is checking with his significant other who helps manage his medications for daytime medications states he is on long-acting and PRN short-acting insulin. He follows with Dr. Navarrete for Nephrology through [facility]. Patient states he has had a cough but really no fevers or other symptoms he does note that he had a significant weight loss with Ozempic over the last several months and just felt generally unwell but has not really had any other symptoms. Call out to multiple hospitals, [facility] does not have any beds, [facility] I spoke with Nephrology but they do not have any bed availability they are happy to accept patient if a bed becomes available. They are working with their administration. Call out to [place] as well as [facility]. Spoke with Dr. [facility] who accepts for inpatient. Plan for ALS transport. <Tena Forbes, DO - Last Filed: 01/04/24 19:08> Lab Data Labs: Lab Results 01/03/24 01/03/24 01/03/24 Range/Units 18:45 18:50 19:17 WBC 17.6 H (4.5-11.0) X10^3/uL RBC 3.33 L (4.5-5.9) X10^6/uL Hgb 9.6 L (13.5-17.5) g/dL Hct 27.8 L (41-53) % MCV 83.7 (80-100) fL MCH 28.9 (26-34) PG MCHC 34.6 (30-36) % RDW 14.7 (11.6-14.8) % Plt Count 364 (150-400) X10^3/uL Neut % (Auto) 77.2 H (50-75) % Lymph % (Auto) 13.0 L (25-40) % Hendricks % (Auto) 8.7 (3-14) % Eos % (Auto) 0.5 L (2-4) % Baso % (Auto) 0.6 (0-2) % Neut # (Auto) 41141 H (9049-7506) /uL Lymph # (Auto) 2300 (9954-3100) /uL Hendricks # (Auto) 1500 H (0-900) /uL Eos # (Auto) 100 (0-450) /uL Baso # (Auto) 100 (0-100) /uL PT 15.2 H (9.4-12.5) SECONDS INR 1.3 (0.9-1.3) ABG Sample Site Right brachial ABG pH 7.46 H (7.35-7.45) ABG pCO2 41.6 (35-45) mmHg ABG pO2 66 L (80-100) mmHg ABG HCO3 29 H (23-27) mmol/L ABG Total CO2 29 H (23-27) mmol/L ABG O2 Saturation 94 L (95-100) % ABG Base Excess 5.0 H (-2-3) mmol/L Heath Test N/a O2 Delivery Device 2 lpm nc FiO2 % 28.0 % % Sodium 133 L (137-145) mmol/L Potassium 3.8 (3.4-5.1) mmol/L Chloride 94 L (98-107) mmol/L Carbon Dioxide 32 (22-32) mmol/L BUN 28 H (9-20) mg/dL Creatinine 4.19 H (0.66-1.25) mg/dL Estimated GFR 17 L (>60) mL/min BUN/Creatinine Ratio 6.7 (6-22) Glucose 242 H (70-100) mg/dL Calcium 8.7 (8.4-10.2) mg/dL Magnesium 1.7 (1.6-2.3) mg/dL Total Bilirubin 0.6 (0.2-1.3) mg/dL AST 67 H (17-59) IU/L ALT 16 (<50) IU/L Alkaline Phosphatase 123 (38-126) U/L Total Creatine Kinase 47 L (55-170) U/L Troponin I < 0.012 (0.01-0.034) ng/mL NT-Pro-B Natriuret Pep 3660 H (<125) pg/mL Total Protein 7.0 (6.3-8.2) g/dL Albumin 3.5 (3.5-5.0) g/dL Globulin 3.5 (1.7-4.1) g/dL Albumin/Globulin Ratio 1.0 (1.0-2.8) Procalcitonin 0.333 (<0.5) ng/mL Chlamy pneumoniae PCR Not detected (Not Detect) Adenovirus (PCR) Not detected (Not Detect) B.parapertussis DNA PCR Not detected (Not Detecte) Coronavirus OC43 (PCR) Not detected (Not Detect) Coronavirus HKU1 (PCR) Not detected (Not Detect) Coronavirus 229E (PCR) Not detected (Not Detect) SARS-CoV-2 (PCR) Not detected (Not Detecte) Coronavirus NL63 (PCR) Not detected (Not Detect) Human Metapneumovir PCR Not detected (Not Detect) Influenza Type A (PCR) Not detected (Not Detect) Influenza Type B (PCR) Not detected (Not Detect) M. pneumoniae (PCR) Not detected (Not Detect) Parainfluenza 1 (PCR) Not detected (Not Detect) Parainfluenza 2 (PCR) Not detected (Not Detect) Parainfluenza 3 (PCR) Not detected (Not Detect) Parainfluenza 4 (PCR) Not detected (Not Detect) RSV (PCR) Not detected (Not Detect) Entero/Rhino (PCR) Not detected (Not Detect) 01/04/24 Range/Units 06:16 WBC 16.9 H (4.5-11.0) X10^3/uL RBC 3.08 L (4.5-5.9) X10^6/uL Hgb 8.6 L (13.5-17.5) g/dL Hct 24.9 L (41-53) % MCV 81.1 (80-100) fL MCH 28.0 (26-34) PG MCHC 34.5 (30-36) % RDW 15.0 H (11.6-14.8) % Plt Count 293 (150-400) X10^3/uL Neut % (Auto) 79.9 H (50-75) % Lymph % (Auto) 11.2 L (25-40) % Hendricks % (Auto) 7.9 (3-14) % Eos % (Auto) 0.6 L (2-4) % Baso % (Auto) 0.4 (0-2) % Neut # (Auto) 26286 H (5300-6572) /uL Lymph # (Auto) 1900 (7132-0999) /uL Hendricks # (Auto) 1300 H (0-900) /uL Eos # (Auto) 100 (0-450) /uL Baso # (Auto) 100 (0-100) /uL PT (9.4-12.5) SECONDS INR (0.9-1.3) ABG Sample Site ABG pH (7.35-7.45) ABG pCO2 (35-45) mmHg ABG pO2 (80-100) mmHg ABG HCO3 (23-27) mmol/L ABG Total CO2 (23-27) mmol/L ABG O2 Saturation (95-100) % ABG Base Excess (-2-3) mmol/L Heath Test O2 Delivery Device FiO2 % % Sodium 135 L (137-145) mmol/L Potassium 4.2 (3.4-5.1) mmol/L Chloride 95 L (98-107) mmol/L Carbon Dioxide 33 H (22-32) mmol/L BUN 33 H (9-20) mg/dL Creatinine 5.05 H (0.66-1.25) mg/dL Estimated GFR 13 L (>60) mL/min BUN/Creatinine Ratio 6.5 (6-22) Glucose 186 H (70-100) mg/dL Calcium 8.6 (8.4-10.2) mg/dL Magnesium (1.6-2.3) mg/dL Total Bilirubin (0.2-1.3) mg/dL AST (17-59) IU/L ALT (<50) IU/L Alkaline Phosphatase (38-126) U/L Total Creatine Kinase (55-170) U/L Troponin I (0.01-0.034) ng/mL NT-Pro-B Natriuret Pep (<125) pg/mL Total Protein (6.3-8.2) g/dL Albumin (3.5-5.0) g/dL Globulin (1.7-4.1) g/dL Albumin/Globulin Ratio (1.0-2.8) Procalcitonin (<0.5) ng/mL Chlamy pneumoniae PCR (Not Detect) Adenovirus (PCR) (Not Detect) B.parapertussis DNA PCR (Not Detecte) Coronavirus OC43 (PCR) (Not Detect) Coronavirus HKU1 (PCR) (Not Detect) Coronavirus 229E (PCR) (Not Detect) SARS-CoV-2 (PCR) (Not Detecte) Coronavirus NL63 (PCR) (Not Detect) Human Metapneumovir PCR (Not Detect) Influenza Type A (PCR) (Not Detect) Influenza Type B (PCR) (Not Detect) M. pneumoniae (PCR) (Not Detect) Parainfluenza 1 (PCR) (Not Detect) Parainfluenza 2 (PCR) (Not Detect) Parainfluenza 3 (PCR) (Not Detect) Parainfluenza 4 (PCR) (Not Detect) RSV (PCR) (Not Detect) Entero/Rhino (PCR) (Not Detect) Point of Care Testing Glucose POC 263 MDM Narrative Medical decision making narrative: Ill-appearing but nontoxic patient presenting for cough and for general evaluation after ground level fall. Found to be hypoxic on room air. Taken quickly to ER bed and placed on supplemental nasal cannula. Lungs sound generally coarse to auscultation, patient reports a full dialysis treatment yesterday. Respiratory therapy paged to evaluate the patient. Laboratory work shows WBC count 17.6, hemoglobin 9.6 (baseline), platelets 364, sodium 133, potassium 3.8, creatinine 4.19, glucose 242, troponin undetectable, BNP 3660. Chest x-ray negative for acute findings, however with patient's leukocytosis and hypoxia plan to order a CT chest. Leukocytosis may be at least partially related to recent prednisone use, however since patient is hypoxic as well cannot r/o infectious process. Rocephin and azithromycin ordered for coverage. CT chest shows multifocal pneumonia. Patient has been given Rocephin and azithromycin already. Patient was a dialysis patient, it was not due for dialysis for greater than 24 hours, however since we do not have dialysis capabilities likely will not be able to admit at our facility. Reach out to [facility] since patient gets his dialysis at [facility], however they do not have any available beds. Patient will be monitored overnight, we will discuss with hospitalist in the morning. He was still requiring supplemental nasal cannula. 01/04/2024 Dr. Forbes: Patient is seen and evaluated by myself signed out to myself by Dr. Tanner while awaiting potential transfer. Patient appearing, nontoxic has cough on examination is on 4 L O2 90 91%. Patient has end-stage renal disease on dialysis insulin-dependent diabetic since his 30s who states he had a fell when he tripped over his dog yesterday and when he came in for evaluation was found to have multifocal pneumonia on CT imaging. Patient has not had fluids secondary to being end-stage renal disease, he receives dialysis on Thursday, Thursday and has received regular dialysis with a full treatment on Thursday. Has received Rocephin and azithromycin here in the department and 1 DuoNeb. Patient is checking with his significant other who helps manage his medications for daytime medications states he is on long-acting and PRN short-acting insulin. He follows with Dr. Navarrete for Nephrology through [facility]. Patient states he has had a cough but really no fevers or other symptoms he does note that he had a significant weight loss with Ozempic over the last several months and just felt generally unwell but has not really had any other symptoms. Call out to multiple hospitals, [facility] does not have any beds, [facility] I spoke with Nephrology but they do not have any bed availability they are happy to accept patient if a bed becomes available. They are working with their administration. Call out to [facility] as well as [facility]. Spoke with Dr. Shadi Smith [facility] who accepts for inpatient. Plan for ALS transport. Discharge Plan Departure Patient Disposition: [facility] Clinical Impression: Multifocal pneumonia, Acute hypoxemic respiratory failure, ESRD (end stage renal disease) on dialysis Prescriptions: No Action clonidine 0.3 mg/24 hr patch weekly 1 patch topical (DME) True Metrix Blood Glucose Test Strips Qty: 100 3RF Rx Instructions: Use to check blood sugars once daily (DME) LACETS Qty: 1 3RF Rx Instructions: As directed CHECK BLOOD SUGAR ONCE A DAY ondansetron 4 mg tablet,disintegrating 4 mg PO Q8H PRN (Reason: nausea and vomiting) Qty: 21 0RF (DME) pen needle, diabetic 32 gauge x 5/32 needle See Rx Instructions .ROUTE .MEDSUPPLY Qty: 400 11RF Rx Instructions: use to inject insulin four times a day as prescribed by physician insulin lispro [Humalog KwikPen Insulin] 100 unit/mL insulin pen See Rx Instructions .ROUTE .COMPLEX Qty: 15 5RF Dose Instruction: Inject subcutaneously per sliding scale. Max 90 units per day Rx Instructions: Inject subcutaneously per sliding scale. Max 90 units per day sildenafil (pulm.hypertension) 20 mg tablet 20 mg PO .COMPLEX PRN (Reason: sexual activity) Qty: 30 11RF Rx Instructions: 20 mg orally 1-5 tablets PRN daily; 1-5 tabs 30 minutes prior to sexual activity (DME) pen needle, diabetic [Easy Comfort Pen Grace] 31 gauge x 5/16 needle See Rx Instructions .Route Qty: 100 12RF Rx Instructions: Use to inject insulin 4 times a day as directed (DME) FreeStyle Fabiana 3 Sensor Device See Rx Instructions .ROUTE .COMPLEX Qty: 2 12RF Dose Instruction: DIRECTED/PATIENT WILL NEED TO BE SEEN BEFORE NEXT RENEWAL 12/23/2022 Rx Instructions: USE TO MONITOR BLOOD GLUCOSE LEVELS CONTINUOUSLY. REPLACE EVERY 14 DAYS. alprazolam 0.5 mg tablet 0.5 mg PO BEDTIME PRN (Reason: sleep) Qty: 30 0RF Hold Instructions: Change to #15 pregabalin 50 mg capsule 50 mg PO TID Qty: 90 0RF clonidine HCl 0.1 mg tablet 0.1 mg PO DAILY Qty: 30 11RF furosemide 40 mg tablet 40 mg PO DAILY Qty: 30 2RF venlafaxine 150 mg capsule,extended release 24hr 150 mg PO DAILY Qty: 60 3RF atorvastatin 20 mg tablet 20 mg PO DAILY Qty: 90 2RF carvedilol 25 mg tablet 25 mg PO BID Qty: 180 2RF Rx Instructions: w/Meals -- pantoprazole 40 mg tablet,delayed release (DR/EC) 40 mg PO DAILY Qty: 30 11RF bupropion HCl 150 mg tablet extended release 24 hr 150 mg PO 3XW Qty: 36 3RF Rx Instructions: take only AFTER dialysis, three times a week. venlafaxine 37.5 mg capsule,extended release 24hr 37.5 mg PO DAILY Qty: 90 3RF pregabalin 75 mg capsule 75 mg PO 3XW Qty: 36 3RF Rx Instructions: take only AFTER dialysis three times a week. loperamide 2 mg capsule 2 mg PO BID PRN (Reason: diarrhea) Qty: 60 0RF nifedipine 30 mg tablet extended release 30 mg PO DAILY insulin glargine [Lantus Solostar U-100 Insulin] 100 unit/mL (3 mL) insulin pen 25 unit Sub-Q QDAY (DME) Handicap Placard See Rx Instructions .Route .MEDSUPPLY Qty: 1 0RF Rx Instructions: valid for 5 years ferrous sulfate 325 mg (65 mg iron) Tablet 325 mg PO DAILY calcitriol 0.25 mcg Capsule 0.25 mcg PO DAILY Referrals: Karla Laboy, [Primary Care Provider] -
[2024-01-03 19:05] LABS: Add Manual Diff / Slide Review NO; Basophils Absolute Auto 100 /uL (0-100); Basophils Percent Auto 0.6 % (0-2); Eosinophils Absolute Auto 100 /uL (0-450); Eosinophils Percent Auto 0.5 % (2-4); Hematocrit 27.8 % (41-53); Hemoglobin 9.6 g/dL (13.5-17.5); Lymphocytes Absolute Auto 2300 /uL (1100-4500); Mean Corpuscular HGB Conc 34.6 % (30-36); Mean Corpuscular Hemoglobin 28.9 PG (26-34); Mean Corpuscular Volume 83.7 fL (80-100); Monocytes Absolute Auto 1500 /uL (0-900); Monocytes Percent Auto 8.7 % (3-14); Neutrophils Absolute Auto 13600 /uL (1500-7000); Neutrophils Percent Auto 77.2 % (50-75); Platelet Count 364 X10^3/uL (150-400); Red Blood Cell Count 3.33 X10^6/uL (4.5-5.9); Red Cell Distribution Width 14.7 % (11.6-14.8); White Blood Cell Count 17.6 X10^3/uL (4.5-11.0)
[2024-01-03] MEDS: ALBUTEROL/IPRATROPIUM 3 ML AMPUL INH (19:10)
[2024-01-03 19:20] LABS: Blood Gas Collection Site Right Brachial; HCO3 ABG 29 mmol/L (23-27); Oxygen Saturation ABG 94 % (95-100); PCO2 ABG 41.6 mmHg (35-45); PO2 ABG 66 mmHg (80-100); TCO2 ABG 29 mmol/L (23-27); pH ABG 7.46 (7.35-7.45)
[2024-01-03 19:21] LABS: INR 1.3 (0.9-1.3); Prothrombin Time 15.2 SECONDS (9.4-12.5)
[2024-01-03 19:25] LABS: Alanine Aminotransferase 16 IU/L (<50); Albumin 3.5 g/dL (3.5-5.0); Alkaline Phosphatase 123 U/L (38-126); Aspartate Aminotransferase 67 IU/L (17-59); BUN Creatinine Ratio 6.7 (6-22); Bilirubin Total 0.6 mg/dL (0.2-1.3); Blood Urea Nitrogen 28 mg/dL (9-20); Calcium 8.7 mg/dL (8.4-10.2); Carbon Dioxide 32 mmol/L (22-32); Chloride 94 mmol/L (98-107); Creatine Kinase 47 U/L (55-170); Estimated Glomerular Filt Rate 17 mL/min (>60); Globulin 3.5 g/dL (1.7-4.1); Glucose 242 mg/dL (70-100); HEMOLYSIS 27 (0-50); Magnesium 1.7 mg/dL (1.6-2.3); Potassium 3.8 mmol/L (3.4-5.1); Sodium 133 mmol/L (137-145)
--- NOTE | 2024-01-03 19:25 | EKG_ITS ---
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
[2024-01-03 19:37] LABS: NT-proBNP (BNP-Adult 18+) 3660 pg/mL (<125); Troponin I < 0.012 ng/mL (0.01-0.034)
[2024-01-03 19:40] LABS: Adenovirus Not Detected (Not Detect); B. parapertussis Not Detected (Not Detecte); Bordetella pertussis Not Detected (Not Detect); Chlamydophila pneumoniae Not Detected (Not Detect); Coronavirus 229E Not Detected (Not Detect); Coronavirus HKU1 Not Detected (Not Detect); Coronavirus NL 63 Not Detected (Not Detect); Coronavirus OC43 Not Detected (Not Detect); Human Metapneumovirus Not Detected (Not Detect); Human Rhinovirus/Enterovirus Not Detected (Not Detect); Influenza A Not Detected (Not Detect); Influenza B Not Detected (Not Detect); Mycoplasma pneumoniae Not Detected (Not Detect); Parainfluenza Virus 1 Not Detected (Not Detect); Parainfluenza Virus 2 Not Detected (Not Detect); Parainfluenza Virus 3 Not Detected (Not Detect); Parainfluenza Virus 4 Not Detected (Not Detect); Respiratory Syncytial Virus Not Detected (Not Detect); SARS- CoV-2 Not Detected (Not Detecte)
[2024-01-03 19:42] LABS: Procalcitonin 0.333 ng/mL (<0.5)
[2024-01-03] MEDS: cefTRIAXone 2,000 MG in SODIUM CHLORIDE 0.9% 100 ML 200 MG IV (19:57)
[2024-01-03] MEDS: AZITHROMYCIN 500 MG in DEXTROSE 5% IN WATER 250 ML 250 MG IV (20:38)
--- NOTE | 2024-01-03 20:43 | DI.CT.S_ITS ---
PROCEDURE: CT CHEST WO CON INDICATIONS: cough, hypoxia, neg cxr TECHNIQUE: Noncontrast 5 mm thick sections acquired from the pulmonary apices to the posterior costophrenic angles. 1 mm lung window, 5 mm thick coronal and sagittal and 7 mm axial MIP reformats were then acquired. For radiation dose reduction, the following was used: automated exposure control, adjustment of mA and/or kV according to patient size. COMPARISON: [facility], CR, XR CHEST 2V, 11/23/2023, 17:43. [facility], CR, XR CHEST 1V, 01/03/2024, 19:43. FINDINGS: Image quality: Diagnostic. Lower Neck: No enlarged lymph nodes. Thyroid: No thyroid nodules which require sonographic follow up, per consensus guidelines. Axillae: No enlarged lymph nodes. Chest Wall: Unremarkable. Bones: Unremarkable. Lungs and Pleura: Multifocal nodular infiltrate can be seen involving both lower lobes, right worse than left. A mild degree of patchy nodular infiltrate is also seen involving right middle lobe. No pneumothorax or pleural effusions are seen. Heart: Heart size is normal. No pericardial effusion. There is moderate coronary artery calcification Thoracic Vessels: The aorta and pulmonary arteries demonstrate normal size. Mediastinum and Vidhya: No enlarged lymph nodes. Esophagus: No wall thickening. No hiatal hernia. Upper Abdomen: Visualized upper abdomen solid organs and bowel loops appear normal. IMPRESSION: Multifocal patchy nodular infiltrate can be seen, which is worst within the right lower lobe. (This is not well seen on the prior chest radiograph, even in retrospect.) Additional findings: Moderate coronary artery calcification Dictated by: Zack Echeverria M.D. on 01/03/2024 at 20:20 Approved by: Zack Echeverria M.D. on 01/03/2024 at 20:23
[2024-01-04] VITALS (29 sets, daily range): BP systolic 117–141; BP diastolic 60–72; PULSE 71–86; RESP 15–29; TEMP 36.5; O2SAT 86–98
--- NOTE | 2024-01-04 03:41 | PC.NURSE ---
Pt noted with Sp02 86% on 3 L NC. Pt repositioned, encouraged to cough/deep breathe. O2 increased to 4L NC with sats improving to 93%. Dr Tanner notified of increasing O2 requirement.
[2024-01-04 06:29] LABS: Add Manual Diff / Slide Review NO; Basophils Absolute Auto 100 /uL (0-100); Basophils Percent Auto 0.4 % (0-2); Eosinophils Absolute Auto 100 /uL (0-450); Eosinophils Percent Auto 0.6 % (2-4); Hematocrit 24.9 % (41-53); Hemoglobin 8.6 g/dL (13.5-17.5); Lymphocytes Absolute Auto 1900 /uL (1100-4500); Lymphocytes Percent Auto 11.2 % (25-40); Mean Corpuscular HGB Conc 34.5 % (30-36); Mean Corpuscular Volume 81.1 fL (80-100); Monocytes Absolute Auto 1300 /uL (0-900); Monocytes Percent Auto 7.9 % (3-14); Neutrophils Absolute Auto 13500 /uL (1500-7000); Neutrophils Percent Auto 79.9 % (50-75); Platelet Count 293 X10^3/uL (150-400); Red Blood Cell Count 3.08 X10^6/uL (4.5-5.9); White Blood Cell Count 16.9 X10^3/uL (4.5-11.0)
[2024-01-04 06:39] LABS: BUN Creatinine Ratio 6.5 (6-22); Blood Urea Nitrogen 33 mg/dL (9-20); Calcium 8.6 mg/dL (8.4-10.2); Carbon Dioxide 33 mmol/L (22-32); Chloride 95 mmol/L (98-107); Estimated Glomerular Filt Rate 13 mL/min (>60); Glucose 186 mg/dL (70-100); HEMOLYSIS < 15 (0-50); Potassium 4.2 mmol/L (3.4-5.1); Sodium 135 mmol/L (137-145)
--- NOTE | 2024-01-04 07:47 | PC.NURSE ---
Around 0730 pt's O2 saturations between 87%-90% on 4L NC. RN encouraging pt to deep breathe and to reposition to sit higher up in the bed. Pt sat up a bit more, but states it is painful to sit up any further due to kidney pain. O2 saturations still 88-90% with repositioning. RN increased O2 to 5L NC. Dr. Forbes notified and RT called for re evaluation. Pt's workload of breathing WNL.
--- NOTE | 2024-01-04 11:19 | DI.RAD.S_ITS ---
PROCEDURE: XR KNEE LT 3V INDICATIONS: fall/pain TECHNIQUE: 3 views of the knee were acquired. COMPARISON: None. FINDINGS: Bones: No fractures or dislocations. No suspicious bony lesions. Soft tissues: No joint effusion. No suspicious soft tissue calcifications. IMPRESSION: No acute bony abnormality or significant effusion. Dictated by: Richie Carbone M.D. on 01/04/2024 at 12:48 Approved by: Richie Carbone M.D. on 01/04/2024 at 12:49
[2024-01-04] MEDS: INSULIN REGULAR 100 UNIT/ML 3 ML VIAL SUBCUT (11:43)
--- NOTE | 2024-01-04 11:47 | PC.NURSE ---
Pt complaining of left knee pain behind his knee. States pain started after his fall last night. CMS intact, able to move knee and bear weight. Dr. Forbes notified and Xray odered.
== END 2024-01-04 12:14 | disposition short-term general hospital (02) ==
PROVIDERS: Emergency Medicine; Emergency Provider Emergency Medicine; PCP Family Medicine
DX: J18.9 Pneumonia, unspecified organism (principal); J96.01 Acute respiratory failure with hypoxia; N18.6 End stage renal disease; Z99.2 Dependence on renal dialysis; Z11.52 Encounter for screening for COVID-19; Z79.899 Other long term (current) drug therapy; W01.0XXA Fall on same level from slipping, tripping and stumbling without subsequent striking against object, initial encounter
CPT/HCPCS: 36415; 36600; 71045; 71250; 73562; 80048; 80053; 82550; 82805; 82962; 83735; 83880; 84145; 84484; 85025; 85610; 87040; 87070; 87205; 87633; 93005; 94640; 96365; 96367; 96372; 99284; J0696

== ENCOUNTER → 2024-03-22 15:09 | Outpatient (CLI) | payer MEDICARE, MEDICAID, SELFPAY ==
[2024-03-22 15:52] LABS: Add Manual Diff / Slide Review NO; Basophils Absolute Auto 100 /uL (0-100); Basophils Percent Auto 0.7 % (0-2); Eosinophils Absolute Auto 200 /uL (0-450); Eosinophils Percent Auto 2.1 % (2-4); Hematocrit 33.7 % (41-53); Hemoglobin 11.5 g/dL (13.5-17.5); Lymphocytes Absolute Auto 2300 /uL (1100-4500); Lymphocytes Percent Auto 21.9 % (25-40); Mean Corpuscular HGB Conc 34.2 % (30-36); Mean Corpuscular Volume 84.8 fL (80-100); Monocytes Absolute Auto 700 /uL (0-900); Monocytes Percent Auto 6.8 % (3-14); Neutrophils Absolute Auto 7200 /uL (1500-7000); Neutrophils Percent Auto 68.5 % (50-75); Platelet Count 279 X10^3/uL (150-400); Red Blood Cell Count 3.97 X10^6/uL (4.5-5.9); Red Cell Distribution Width 16.7 % (11.6-14.8); White Blood Cell Count 10.5 X10^3/uL (4.5-11.0)
[2024-03-22 16:44] LABS: Alanine Aminotransferase 33 IU/L (<50); Albumin 3.5 g/dL (3.5-5.0); Albumin Globulin Ratio 1.5 (1.0-2.8); Alkaline Phosphatase 118 U/L (38-126); Aspartate Aminotransferase 25 IU/L (17-59); BUN Creatinine Ratio 6.7 (6-22); Bilirubin Total 0.3 mg/dL (0.2-1.3); Blood Urea Nitrogen 33 mg/dL (9-20); Calcium 8.7 mg/dL (8.4-10.2); Carbon Dioxide 28 mmol/L (22-32); Chloride 103 mmol/L (98-107); Estimated Glomerular Filt Rate 14 mL/min (>60); Globulin 2.4 g/dL (1.7-4.1); Glucose 90 mg/dL (70-100); HEMOLYSIS < 15 (0-50); Potassium 3.6 mmol/L (3.4-5.1); Sodium 139 mmol/L (137-145); Total Protein 5.9 g/dL (6.3-8.2); Uric Acid 8.1 mg/dL (3.5-8.5)
== END ==
LOC: LAB 15:11
PROVIDERS: PCP Family Medicine; Referring Provider Internal Medicine Rheumatology; Visit Provider Internal Medicine Rheumatology
DX: M10.9 Gout, unspecified (principal); E11.22 Type 2 diabetes mellitus with diabetic chronic kidney disease; N18.5 Chronic kidney disease, stage 5; M79.672 Pain in left foot
CPT/HCPCS: 36415; 80053; 84550; 85025

== ENCOUNTER 2024-04-02 17:58 | Emergency (ER) | payer MEDICARE, MEDICAID, SELFPAY ==
[2024-04-02] VITALS (34 sets, daily range): BP systolic 78–111; BP diastolic 49–59; PULSE 59–65; RESP 12–25; TEMP 37.2; O2SAT 91–100; BMI 30.8
[2024-04-02] MEDS: SODIUM CHLORIDE 0.9% 1,000 ML 1000 ML IV (18:00)
--- NOTE | 2024-04-02 18:07 | EKG_ITS ---
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
--- NOTE | 2024-04-02 18:20 | PC.NURSE ---
clonidine patch removed from L shoulder
[2024-04-02 18:26] LABS: Add Manual Diff / Slide Review NO; Basophils Absolute Auto 100 /uL (0-100); Basophils Percent Auto 0.8 % (0-2); Eosinophils Absolute Auto 100 /uL (0-450); Eosinophils Percent Auto 0.9 % (2-4); Hematocrit 34.6 % (41-53); Hemoglobin 11.4 g/dL (13.5-17.5); Lymphocytes Absolute Auto 2600 /uL (1100-4500); Lymphocytes Percent Auto 18.5 % (25-40); Mean Corpuscular Hemoglobin 28.2 PG (26-34); Mean Corpuscular Volume 85.4 fL (80-100); Monocytes Absolute Auto 1500 /uL (0-900); Monocytes Percent Auto 10.7 % (3-14); Neutrophils Absolute Auto 9600 /uL (1500-7000); Neutrophils Percent Auto 69.1 % (50-75); Platelet Count 258 X10^3/uL (150-400); Red Blood Cell Count 4.05 X10^6/uL (4.5-5.9); Red Cell Distribution Width 16.4 % (11.6-14.8); White Blood Cell Count 13.9 X10^3/uL (4.5-11.0)
--- NOTE | 2024-04-02 18:33 | PC.NURSE ---
Pt wearing a clonidine patch to help control hypertension. Provider Ciro made aware and asks this RN to take patch off. Patch removed and disposed of properly.
[2024-04-02 18:39] LABS: Alanine Aminotransferase 40 IU/L (<50); Albumin 3.3 g/dL (3.5-5.0); Albumin Globulin Ratio 1.3 (1.0-2.8); Alkaline Phosphatase 86 U/L (38-126); Aspartate Aminotransferase 27 IU/L (17-59); BUN Creatinine Ratio 10.3 (6-22); Bilirubin Total 0.4 mg/dL (0.2-1.3); Blood Urea Nitrogen 53 mg/dL (9-20); Calcium 8.4 mg/dL (8.4-10.2); Carbon Dioxide 29 mmol/L (22-32); Chloride 100 mmol/L (98-107); Creatine Kinase 33 U/L (55-170); Estimated Glomerular Filt Rate 13 mL/min (>60); Globulin 2.5 g/dL (1.7-4.1); Glucose 128 mg/dL (70-100); HEMOLYSIS 18 (0-50); Magnesium 1.5 mg/dL (1.6-2.3); Potassium 3.8 mmol/L (3.4-5.1); Sodium 136 mmol/L (137-145); Total Protein 5.8 g/dL (6.3-8.2)
--- NOTE | 2024-04-02 18:45 | PC.NURSE ---
This RN notifies provider Ciro that patient fluids almost finished and of his vitals. This RN is to monitor patient for increasing or worsening symptoms such as dizziness, lightheadedness or any other s/s. Pt currently reports feeling lots better. He reports dizziness upon sitting upright, but not while laying flat. Pt is laying down with feet propped up by pillow. Provider Ciro is made aware. At this time no new orders.
[2024-04-02 18:50] LABS: Troponin I < 0.012 ng/mL (0.01-0.034)
[2024-04-02 18:55] LABS: Procalcitonin 0.176 ng/mL (<0.5)
--- NOTE | 2024-04-02 20:22 | PC.NURSE ---
Pt states, his blood sugar is low and states his CGM says 80. Pt requests juice. This RN gives patient orange juice and checks blood sugar. It is 83. Provider made aware.
--- NOTE | 2024-04-02 21:14 | PC.NURSE ---
Pt ambulates to the bathroom. Denies dizziness. States, I feel great. Pt is steady on feet to bathroom.
== END 2024-04-02 21:28 | disposition home or self-care (01) ==
PROVIDERS: Emergency Provider Emergency Medicine; PCP Family Medicine
DX: I95.9 Hypotension, unspecified (principal); N18.6 End stage renal disease; Z99.2 Dependence on renal dialysis; I12.0 Hypertensive chronic kidney disease with stage 5 chronic kidney disease or end stage renal disease; Z87.891 Personal history of nicotine dependence
CPT/HCPCS: 36415; 71045; 80053; 82550; 82962; 83605; 83735; 84145; 84484; 85025; 93005; 96360; 99284

== ENCOUNTER → 2024-04-18 16:29 | Outpatient (CLI) | payer MEDICARE, MEDICAID, SELFPAY ==
[2024-04-18 20:27] LABS: Influenza A - CEPHEID Flu A NEGATIVE (NEGATIVE); Influenza B - CEPHEID Flu B NEGATIVE (NEGATIVE); Respiratory Syncytial Virus Negative (Negative)
[2024-04-18 20:28] LABS: COVID-19 CEPHEID 4-PLEX PCR Negative (Negative)
== END ==
PROVIDERS: PCP Family Medicine; Visit Provider Family Medicine
DX: D72.829 Elevated white blood cell count, unspecified (principal); N18.6 End stage renal disease; Z99.2 Dependence on renal dialysis
CPT/HCPCS: 0241U

== ENCOUNTER 2025-02-11 17:09 | Emergency (ER) | payer MEDICARE, MEDICAID, OTHER, SELFPAY ==
[2025-02-11] VITALS (7 sets, daily range): BP systolic 138–155; BP diastolic 67–106; PULSE 76–83; RESP 16–20; TEMP 36.6; O2SAT 93–99; BMI 30.1
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
--- NOTE | 2025-02-11 17:33 | EKG_ITS ---
[address] [id number] [address] [address] Test Date: 2025-02-11 Pat Name: Flo Shi Department: Room: Gender: Male Information Scientist: CARRIE : 1975 Requested By: Order Number: [id number] Reading MD: Heath Gallegos Measurements Intervals [place] Rate: 79 P: 14 NC: 162 QRS: -17 QRSD: 78 T: 58 QT: 412 QTc: 472 Interpretive Statements Normal sinus rhythm Electronically Signed On 02-15-2025 8:00:07 PDT by Heath Gallegos
[2025-02-11 17:36] LABS: Add Manual Diff / Slide Review NO; Hematocrit 37.0 % (41-53); Hemoglobin 12.7 g/dL (13.5-17.5); Lymphocytes Absolute Auto 1900 /uL (1100-4500); Mean Corpuscular HGB Conc 34.4 % (30-36); Mean Corpuscular Hemoglobin 30.1 PG (26-34); Mean Corpuscular Volume 87.6 fL (80-100); Platelet Count 196 X10^3/uL (150-400)
[2025-02-11 17:47] LABS: Alanine Aminotransferase 19 IU/L (<50); Albumin 4.7 g/dL (3.5-5.0); Albumin Globulin Ratio 1.6 (1.0-2.8); Alkaline Phosphatase 82 U/L (38-126); Blood Urea Nitrogen 30 mg/dL (9-20); Calcium 9.1 mg/dL (8.4-10.2); Carbon Dioxide 29 mmol/L (22-32); Chloride 95 mmol/L (98-107); Estimated Glomerular Filt Rate 9 mL/min (>60); Globulin 3.0 g/dL (1.7-4.1); Glucose 167 mg/dL (70-99); HEMOLYSIS < 15 (0-50); Potassium 3.8 mmol/L (3.4-5.1); Sodium 139 mmol/L (137-145); Total Protein 7.7 g/dL (6.3-8.2)
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
== END 2025-02-11 19:58 | disposition home or self-care (01) ==
PROVIDERS: Family Medicine; Emergency Provider Emergency Medicine; PCP Family Medicine
DX: S20.212A Contusion of left front wall of thorax, initial encounter (principal); S60.221A Contusion of right hand, initial encounter; S70.11XA Contusion of right thigh, initial encounter; S00.12XA Contusion of left eyelid and periocular area, initial encounter; S20.211A Contusion of right front wall of thorax, initial encounter; N18.6 End stage renal disease; Z99.2 Dependence on renal dialysis; Y08.02XA Assault by strike by baseball bat, initial encounter
CPT/HCPCS: 36415; 70450; 70486; 71275; 72125; 73130; 73552; 74177; 80053; 85025; 93005; 99284; 99285; Q9967